=== PATIENT | male | born 1950 | race Caucasian/White ===

== ENCOUNTER 2017-03-26 12:39 | Inpatient (IN) | payer BC, MEDICAID, OTHER ==
[~2017-03-26] VITALS: Ht 170.2 cm; Wt 105.0 kg
[~2017-03-26 12:39] MED LIST: ALBU0.63 NEB; ALBU8.5H5 INH; AMLO5TAB4 PO; CEFD300C37 PO; FLUT1DIS3 INH; HYDR-3342 PO; HYDR25TA6 PO; LOSA50TA2 PO; MONT10TA6 PO; PRED20TA PO
[2017-03-26] MEDS ORDERED: ALBUTEROL/IPRATROPIUM 2.5MG/0.5MG, 3 ML NPPB SCH (13:00)
[2017-03-26] MEDS ORDERED: KETOROLAC 30 MG/1 ML IVPush ONE (13:00)
[2017-03-26] MEDS ORDERED: ALBUTEROL 0.5%, 20ML NPPBCONT ONE ×2 (13:00→16:30)
[2017-03-26] MEDS ORDERED: methylPREDNISolone SOD SUCC 125 MG/2 ML IVP ONE (13:00)
[2017-03-26] MEDS ORDERED: AZITHROMYCIN 500 MG in SODIUM CHLORIDE 0.9% 250 ML IVPB ONE (13:00)
[2017-03-26] MEDS ORDERED: SODIUM CHLORIDE FLUSH 10ML SYR IVF ONE (13:00)
[2017-03-26] MEDS ORDERED: CEFTRIAXONE PMX 1GM/50ML 50 ML IVPB ONE (13:00)
[2017-03-26] MEDS ORDERED: SODIUM CHLORIDE 0.9% 1,000ML IVBOLUS ONE (13:00)
[2017-03-26] MEDS ORDERED: ALBUTEROL/IPRATROPIUM 2.5MG/0.5MG, 3 ML ONE ×2 (13:31→15:49)
[2017-03-26 13:32] LABS: ABG COLLECTION SITE LEFT BRACHIAL
[2017-03-26 13:33] LABS: HEMOGLOBIN 16.6 g/dL (13.7-18.0); WHITE BLOOD COUNT 9.9 x10^3/uL (3.4-10)
[2017-03-26] MEDS ORDERED: CEFTRIAXONE PMX 1GM/50ML 50 ML ONE (13:35)
[2017-03-26] MEDS ORDERED: KETOROLAC 30 MG/1 ML ONE (13:35)
[2017-03-26] MEDS ORDERED: methylPREDNISolone SOD SUCC 125 MG/2 ML ONE (13:36)
[2017-03-26 13:44] LABS: BLOOD UREA NITROGEN 16 mg/dL (7-18)
[2017-03-26 13:49] LABS: ASPARTATE AMINO TRANSFERASE 18 U/L (15-37)
[2017-03-26 13:54] LABS: IS PT STATUS REG ER OR PRE ER? YES
[2017-03-26] MEDS ORDERED: ALBUTEROL 0.5%, 20ML ONE (15:51)
[2017-03-26] MEDS ORDERED: hydrALAzine 20 MG/ML, 1ML IVPush PRN (16:30)
[2017-03-26] MEDS ORDERED: ONDANSETRON 2MG/ML, 2ML IVPush PRN (16:30)
[2017-03-26] MEDS ORDERED: DOCUSATE 100 MG CAPSULE PO PRN (16:30)
[2017-03-26] MEDS ORDERED: POLYETHYLENE GLYCOL 17 GM PACKET PO PRN (16:30)
[2017-03-26] MEDS ORDERED: TEMPLATE NON-FORMULARY MED. (Albuterol Sulfate** (Albuterol Sulfate Hfa**) 2 PUFF(S)) INH PRN (16:30)
[2017-03-26] MEDS ORDERED: GUAIFENESIN/DM 200-20MG, 10ML UDC PO PRN (16:30)
[2017-03-26] MEDS ORDERED: morphine SULFATE 10 MG/ML, 1ML IVPush PRN (16:30)
[2017-03-26] MEDS ORDERED: ZOLPIDEM 5MG TABLET PO PRN (16:30)
[2017-03-26] MEDS ORDERED: BISACODYL 10 MG SUPP PR PRN (16:30)
[2017-03-26] MEDS ORDERED: ONDANSETRON ODT 4 MG PO PRN (16:30)
[2017-03-26 17:05] LABS: IS PT STATUS REG ER OR PRE ER? YES
[2017-03-26 17:52] LABS: RAPID INFLUENZA A Negative (Negative)
[2017-03-26 17:53] LABS: RAPID INFLUENZA B POSITIVE (Negative)
[2017-03-26 18:06] VITALS: BP 187/94
[2017-03-26] MEDS: ENOXAPARIN 40 MG/0.4 ML SQ SCH (18:18)
[2017-03-26] MEDS: NICOTINE 21 MG/24 HR PATCH.TD24 TD SCH (18:19)
[2017-03-26] MEDS: LEVOFLOXACIN/PMX 750MG/150ML 150 ML IV SCH (18:20)
[2017-03-26] MEDS: methylPREDNISolone SOD SUCC 125 MG/2 ML IVPush SCH (18:20)
[2017-03-26] MEDS ORDERED: UMEC1DIS INH (18:48)
[2017-03-26] MEDS ORDERED: TYLENOL MIGRAINE PO (18:48)
[2017-03-26] MEDS: ALBUTEROL/IPRATROPIUM 2.5MG/0.5MG, 3 ML NPPB SCH ×2 (19:27→22:40)
[2017-03-26 19:37] VITALS: BP 114/74
[2017-03-26] MEDS: MONTELUKAST 10 MG TABLET PO SCH (20:38)
[2017-03-26] MEDS: OSELTAMIVIR 75 MG CAPSULE PO SCH (20:38)
[2017-03-26] MEDS ORDERED: OSELTAMIVIR 6 MG/ML ORAL SUSP PO SCH (21:00)
[2017-03-26 22:20] LABS: IS PT STATUS REG ER OR PRE ER? NO
[2017-03-27] MEDS: methylPREDNISolone SOD SUCC 125 MG/2 ML IVPush SCH ×4 (00:13→21:19)
[2017-03-27] MEDS: OXYcodone IR 5MG TABLET PO PRN (00:13)
[2017-03-27] MEDS: GUAIFENESIN/DM 200-20MG, 10ML UDC PO PRN ×3 (00:23→17:17)
[2017-03-27 00:33] VITALS: BP 160/84
[2017-03-27] MEDS: ALBUTEROL/IPRATROPIUM 2.5MG/0.5MG, 3 ML NPPB SCH ×6 (02:40→22:29)
[2017-03-27 05:21] LABS: HEMATOCRIT 46.3 % (39.2-51.8); HEMOGLOBIN 15.8 g/dL (13.7-18.0); WHITE BLOOD COUNT 12.9 x10^3/uL (3.4-10)
[2017-03-27 05:27] LABS: BLOOD UREA NITROGEN 24 mg/dL (7-18)
[2017-03-27 07:57] VITALS: BP 155/75
[2017-03-27] MEDS: OSELTAMIVIR 75 MG CAPSULE PO SCH ×2 (08:51→21:19)
[2017-03-27] MEDS: LOSARTAN 50MG TABLET PO SCH (08:51)
[2017-03-27] MEDS: FLUTICASONE/VILANTEROL 100-25MCG/INH INH SCH (08:51)
[2017-03-27] MEDS: PANTOPROZOLE 40MG TABLET PO SCH (08:51)
[2017-03-27] MEDS: AMLODIPINE 5 MG TABLET PO SCH (08:52)
[2017-03-27 14:16] VITALS: BP 137/73
[2017-03-27] MEDS: NS + 20MEQ KCL 1,000 ML IV SCH (15:27)
[2017-03-27] MEDS: NICOTINE 21 MG/24 HR PATCH.TD24 TD SCH (16:30)
[2017-03-27] MEDS: LEVOFLOXACIN/PMX 750MG/150ML 150 ML IV SCH (16:51)
[2017-03-27] MEDS: ENOXAPARIN 40 MG/0.4 ML SQ SCH (16:51)
[2017-03-27] MEDS: MONTELUKAST 10 MG TABLET PO SCH (19:21)
[2017-03-27 20:08] VITALS: BP 144/77
[2017-03-28] MEDS: ALBUTEROL/IPRATROPIUM 2.5MG/0.5MG, 3 ML NPPB SCH ×6 (02:12→22:30)
[2017-03-28] MEDS: NS + 20MEQ KCL 1,000 ML IV SCH (02:53)
[2017-03-28] MEDS: methylPREDNISolone SOD SUCC 125 MG/2 ML IVPush SCH ×4 (02:53→19:55)
[2017-03-28] MEDS: GUAIFENESIN/DM 200-20MG, 10ML UDC PO PRN ×3 (02:59→16:53)
[2017-03-28 03:00] VITALS: BP 135/71
[2017-03-28 05:57] LABS: BLOOD UREA NITROGEN 31 mg/dL (7-18)
[2017-03-28 06:09] LABS: HEMATOCRIT 44.5 % (39.2-51.8); WHITE BLOOD COUNT 23.9 x10^3/uL (3.4-10)
[2017-03-28 06:59] LABS: DIFF TOTAL CELLS COUNTED 100 CELL DIFF
[2017-03-28 07:00] LABS: VERIFY COUNTS? YES
[2017-03-28 08:30] VITALS: BP 137/66
[2017-03-28] MEDS: AMLODIPINE 5 MG TABLET PO SCH (09:00)
[2017-03-28] MEDS: FLUTICASONE/VILANTEROL 100-25MCG/INH INH SCH (09:23)
[2017-03-28] MEDS: PANTOPROZOLE 40MG TABLET PO SCH (09:24)
[2017-03-28] MEDS: OSELTAMIVIR 75 MG CAPSULE PO SCH ×2 (09:25→21:35)
[2017-03-28 09:35] VITALS: BP 165/100
[2017-03-28] MEDS: LOSARTAN 50MG TABLET PO SCH (09:50)
[2017-03-28 11:25] VITALS: BP 156/73
[2017-03-28 13:54] VITALS: BP 155/76
[2017-03-28] MEDS: ENOXAPARIN 40 MG/0.4 ML SQ SCH (16:49)
[2017-03-28] MEDS: NICOTINE 21 MG/24 HR PATCH.TD24 TD SCH (16:49)
[2017-03-28] MEDS: LEVOFLOXACIN/PMX 750MG/150ML 150 ML IV SCH (16:49)
[2017-03-28 18:36] VITALS: BP 150/73
[2017-03-28] MEDS: MONTELUKAST 10 MG TABLET PO SCH (19:21)
[2017-03-29 01:22] VITALS: BP 138/79
[2017-03-29] MEDS: methylPREDNISolone SOD SUCC 125 MG/2 ML IVPush SCH ×4 (01:24→19:41)
[2017-03-29] MEDS: ALBUTEROL/IPRATROPIUM 2.5MG/0.5MG, 3 ML NPPB SCH ×6 (02:25→23:15)
[2017-03-29 06:16] LABS: BLOOD UREA NITROGEN 35 mg/dL (7-18)
[2017-03-29 07:35] VITALS: BP 167/76
[2017-03-29] MEDS: FLUTICASONE/VILANTEROL 100-25MCG/INH INH SCH (08:28)
[2017-03-29] MEDS: AMLODIPINE 5 MG TABLET PO SCH (08:28)
[2017-03-29] MEDS: PANTOPROZOLE 40MG TABLET PO SCH (08:28)
[2017-03-29] MEDS: LOSARTAN 50MG TABLET PO SCH (08:29)
[2017-03-29] MEDS: GUAIFENESIN/DM 200-20MG, 10ML UDC PO PRN (08:30)
[2017-03-29] MEDS: OSELTAMIVIR 75 MG CAPSULE PO SCH ×2 (09:36→20:58)
[2017-03-29] MEDS: ALBUTEROL SULFATE 2.5 MG/3 ML HHN PRN ×2 (10:49→14:38)
[2017-03-29 14:21] VITALS: BP 133/73
[2017-03-29] MEDS: LEVOFLOXACIN/PMX 750MG/150ML 150 ML IV SCH (16:42)
[2017-03-29] MEDS: ENOXAPARIN 40 MG/0.4 ML SQ SCH (16:43)
[2017-03-29] MEDS: NICOTINE 21 MG/24 HR PATCH.TD24 TD SCH (16:43)
[2017-03-29 19:35] VITALS: BP 135/70
[2017-03-29] MEDS: MONTELUKAST 10 MG TABLET PO SCH (20:48)
[2017-03-30] MEDS: methylPREDNISolone SOD SUCC 125 MG/2 ML IVPush SCH ×4 (00:49→19:37)
[2017-03-30] MEDS: OXYcodone IR 5MG TABLET PO PRN (00:57)
[2017-03-30 02:20] VITALS: BP 129/66
[2017-03-30] MEDS: ALBUTEROL/IPRATROPIUM 2.5MG/0.5MG, 3 ML NPPB SCH ×6 (03:05→22:05)
[2017-03-30 06:34] LABS: BLOOD UREA NITROGEN 33 mg/dL (7-18)
[2017-03-30 09:30] VITALS: BP 146/76
[2017-03-30] MEDS: OSELTAMIVIR 75 MG CAPSULE PO SCH ×2 (09:32→20:39)
[2017-03-30] MEDS: LOSARTAN 50MG TABLET PO SCH (09:33)
[2017-03-30] MEDS: AMLODIPINE 5 MG TABLET PO SCH (09:33)
[2017-03-30] MEDS: PANTOPROZOLE 40MG TABLET PO SCH (09:33)
[2017-03-30] MEDS: FLUTICASONE/VILANTEROL 100-25MCG/INH INH SCH (09:33)
[2017-03-30 13:06] VITALS: BP 150/75
[2017-03-30] MEDS: NICOTINE 21 MG/24 HR PATCH.TD24 TD SCH (16:30)
[2017-03-30] MEDS: ENOXAPARIN 40 MG/0.4 ML SQ SCH (16:51)
[2017-03-30] MEDS: LEVOFLOXACIN/PMX 750MG/150ML 150 ML IV SCH (16:51)
[2017-03-30 19:48] VITALS: BP 150/80
[2017-03-30] MEDS: MONTELUKAST 10 MG TABLET PO SCH (20:39)
[2017-03-31] MEDS: methylPREDNISolone SOD SUCC 125 MG/2 ML IVPush SCH ×4 (01:14→18:31)
[2017-03-31 01:57] VITALS: BP 128/78
[2017-03-31] MEDS: ALBUTEROL/IPRATROPIUM 2.5MG/0.5MG, 3 ML NPPB SCH ×6 (02:13→22:53)
[2017-03-31 06:48] VITALS: BP 163/81
[2017-03-31] MEDS: FLUTICASONE/VILANTEROL 100-25MCG/INH INH SCH (07:41)
[2017-03-31] MEDS: AMLODIPINE 5 MG TABLET PO SCH (07:41)
[2017-03-31] MEDS: LOSARTAN 50MG TABLET PO SCH (07:42)
[2017-03-31] MEDS: PANTOPROZOLE 40MG TABLET PO SCH (07:42)
[2017-03-31] MEDS: OSELTAMIVIR 75 MG CAPSULE PO SCH (07:42)
[2017-03-31 15:46] VITALS: BP 161/77
[2017-03-31] MEDS: ENOXAPARIN 40 MG/0.4 ML SQ SCH (16:33)
[2017-03-31] MEDS: LEVOFLOXACIN/PMX 750MG/150ML 150 ML IV SCH (16:34)
[2017-03-31 19:37] VITALS: BP 150/76
[2017-03-31] MEDS: MONTELUKAST 10 MG TABLET PO SCH (20:19)
[2017-04-01 01:18] VITALS: BP 145/83
[2017-04-01] MEDS: methylPREDNISolone SOD SUCC 125 MG/2 ML IVPush SCH ×4 (01:50→20:52)
[2017-04-01] MEDS: ALBUTEROL/IPRATROPIUM 2.5MG/0.5MG, 3 ML NPPB SCH ×5 (03:00→20:00)
[2017-04-01] MEDS: FLUTICASONE/VILANTEROL 100-25MCG/INH INH SCH (09:13)
[2017-04-01] MEDS: PANTOPROZOLE 40MG TABLET PO SCH (09:14)
[2017-04-01] MEDS: AMLODIPINE 5 MG TABLET PO SCH (09:14)
[2017-04-01] MEDS: LOSARTAN 50MG TABLET PO SCH (09:14)
[2017-04-01] MEDS: GUAIFENESIN/DM 200-20MG, 10ML UDC PO PRN (09:16)
[2017-04-01 09:20] VITALS: BP 168/79
[2017-04-01 16:15] VITALS: BP 169/92
[2017-04-01] MEDS: ENOXAPARIN 40 MG/0.4 ML SQ SCH (17:52)
[2017-04-01] MEDS: LEVOFLOXACIN 750 MG TABLET PO SCH (17:53)
[2017-04-01 18:50] VITALS: BP 146/74
[2017-04-01] MEDS: MONTELUKAST 10 MG TABLET PO SCH (20:52)
[2017-04-02] MEDS: methylPREDNISolone SOD SUCC 125 MG/2 ML IVPush SCH ×4 (02:54→21:16)
[2017-04-02 02:59] VITALS: BP 134/71
[2017-04-02 07:43] VITALS: BP 155/87
[2017-04-02] MEDS: ALBUTEROL/IPRATROPIUM 2.5MG/0.5MG, 3 ML NPPB SCH ×4 (07:45→19:15)
[2017-04-02] MEDS: FLUTICASONE/VILANTEROL 100-25MCG/INH INH SCH (08:56)
[2017-04-02] MEDS: PANTOPROZOLE 40MG TABLET PO SCH (08:56)
[2017-04-02] MEDS: AMLODIPINE 5 MG TABLET PO SCH (08:57)
[2017-04-02] MEDS: LOSARTAN 50MG TABLET PO SCH (08:57)
[2017-04-02] MEDS ORDERED: FLU VACC QS2017-18 (36MOS+) UP/PF 0.5 ML IM-VACC ONE (10:30)
[2017-04-02 13:29] VITALS: BP 140/72
[2017-04-02] MEDS: ENOXAPARIN 40 MG/0.4 ML SQ SCH (16:28)
[2017-04-02] MEDS: LEVOFLOXACIN 750 MG TABLET PO SCH (16:28)
[2017-04-02 18:55] VITALS: BP 152/75
[2017-04-02] MEDS: MONTELUKAST 10 MG TABLET PO SCH (21:16)
[2017-04-03 00:30] VITALS: BP 133/68
[2017-04-03] MEDS: methylPREDNISolone SOD SUCC 125 MG/2 ML IVPush SCH ×2 (02:51→08:53)
[2017-04-03 06:23] LABS: HEMATOCRIT 43.7 % (39.2-51.8); HEMOGLOBIN 14.7 g/dL (13.7-18.0); WHITE BLOOD COUNT 13.6 x10^3/uL (3.4-10)
[2017-04-03 06:28] LABS: BLOOD UREA NITROGEN 25 mg/dL (7-18)
[2017-04-03] MEDS: ALBUTEROL/IPRATROPIUM 2.5MG/0.5MG, 3 ML NPPB SCH (07:20)
[2017-04-03 08:00] VITALS: BP 150/70
[2017-04-03] MEDS: FLUTICASONE/VILANTEROL 100-25MCG/INH INH SCH (08:52)
[2017-04-03] MEDS: AMLODIPINE 5 MG TABLET PO SCH (08:53)
[2017-04-03] MEDS: LOSARTAN 50MG TABLET PO SCH (08:53)
[2017-04-03] MEDS: PANTOPROZOLE 40MG TABLET PO SCH (08:53)
[2017-04-03] MEDS ORDERED: PRED20TA PO (09:09)
[2017-04-03] MEDS ORDERED: MONT10TA9 PO (09:09)
[2017-04-03] MEDS ORDERED: LEVO750T26 PO (09:09)
[2017-04-03] MEDS ORDERED: HYDR-3342 PO (09:09)
[2017-04-03] MEDS ORDERED: AMLO5TAB2 PO (09:09)
[2017-04-03] MEDS ORDERED: DOXY100T PO (09:18)
== END 2017-04-03 10:40 | disposition home or self-care (01) | DRG 189 ==
LOC: ED 15:06 → EDIP 16:14 → 5SO 17:25 → 3NE 04-02 00:01
PROVIDERS: ADMIT Internal Medicine; ATTEND Hospitalist
DX: J96.01 Acute respiratory failure with hypoxia (principal); N17.0 Acute kidney failure with tubular necrosis; J10.08 Influenza due to other identified influenza virus with other specified pneumonia; J44.0 Chronic obstructive pulmonary disease with (acute) lower respiratory infection; J44.1 Chronic obstructive pulmonary disease with (acute) exacerbation; F17.200 Nicotine dependence, unspecified, uncomplicated; I10 Essential (primary) hypertension; J20.9 Acute bronchitis, unspecified; E66.9 Obesity, unspecified; J10.1 Influenza due to other identified influenza virus with other respiratory manifestations; E78.5 Hyperlipidemia, unspecified; Z68.36 Body mass index [BMI] 36.0-36.9, adult
CPT/HCPCS: 36415; 36600; 71010; 80048; 80053; 80061; 82040; 82803; 83036; 83605; 83690; 83735; 83880; 84100; 84439; 84443; 84484; 85025; 85610; 85730; 87040; 87400; 90686; 93005; 94640; 94644; 96365; 96366; 96367; 96375; J0456; J0696; J1650; J1885; J1956; J3480; J7613; J7620; J2930; J7030; J7050

== ENCOUNTER 2018-03-01 21:34 | Inpatient (IN) | payer OTHER, MEDICARE ==
[~2018-03-01] VITALS: Ht 170.2 cm; Wt 105.3 kg
[~2018-03-01 21:34] MED LIST changes: +AMLO5TAB7 PO; +DOXY100T PO; +LEVO750T26 PO; +MONT10TA9 PO; +TYLENOL MIGRAINE PO; +UMEC1DIS INH
[2018-03-01] MEDS ORDERED: ALBUTEROL/IPRATROPIUM 2.5MG/0.5MG, 3 ML ONE (22:09)
[2018-03-01] MEDS ORDERED: ALBUTEROL/IPRATROPIUM 2.5MG/0.5MG, 3 ML NPPB SCH (22:30)
[2018-03-01 22:51] LABS: BASOPHILS # (AUTO) 0.06 x10^3/uL (0-0.1); BASOPHILS % (AUTO) 1 % (0-1); EOSINOPHILS # (AUTO) 0.22 x10^3/uL (0-0.4); EOSINOPHILS % (AUTO) 2 % (1-7); LYMPHOCYTES % (AUTO) 9 % (22-44); MD NO; MEAN CORPUSCULAR HEMOGLOBIN 29.7 pg (27.5-34.5); MEAN CORPUSCULAR HGB CONC 33.8 g/dL (33.2-36.2); MEAN CORPUSCULAR VOLUME 87.9 fL (81-97); MEAN PLATELET VOLUME 7.8 fL (7.4-10.4); MONOCYTES # (AUTO) 1.18 x10^3/uL (0.2-0.8); MONOCYTES % (AUTO) 10 % (2-9); NEUTROPHILS # (AUTO) 9.43 x10^3/uL (1.8-6.8); NEUTROPHILS % (AUTO) 79 % (42-75); PLATELET COUNT 319 x10^3/uL (130-400); RED BLOOD COUNT 5.12 x10^6/uL (4.38-5.82); RED CELL DISTRIBUTION WIDTH 14.2 % (9.4-14.8)
[2018-03-01 23:01] LABS: ALANINE AMINOTRANSFERASE 31 U/L (12-78); ALBUMIN 3.8 g/dL (3.4-5.0); ANION GAP 9 mmol/L (5-15); CALCIUM 8.6 mg/dL (8.5-10.1); CHLORIDE 106 mmol/L (98-107)
[2018-03-01 23:05] LABS: ALKALINE PHOSPHATASE 89 U/L (45-117); BILIRUBIN,TOTAL 0.6 mg/dL (0.2-1.0); TOTAL PROTEIN 7.8 g/dL (6.4-8.2); TROPONIN I < 0.015 ng/mL (0.000-0.045)
[2018-03-02] VITALS (7 sets, daily range): BP systolic 113–156; BP diastolic 60–88
[2018-03-02] MEDS ORDERED: HYDROcodone/APAP 5/325 TABLET PO PRN
[2018-03-02] MEDS ORDERED: morphine SULFATE 10 MG/ML, 1ML IVPush PRN
[2018-03-02] MEDS ORDERED: DOCUSATE 100 MG CAPSULE PO PRN
[2018-03-02] MEDS ORDERED: ENALAPRILAT 1.25 MG/ML, 2ML IV PRN
[2018-03-02] MEDS ORDERED: POLYETHYLENE GLYCOL 17 GM PACKET PO PRN
[2018-03-02] MEDS ORDERED: ACETAMINOPHEN 325 MG TABLET PO PRN
[2018-03-02] MEDS ORDERED: ONDANSETRON 2MG/ML, 2ML IVPush PRN
[2018-03-02] MEDS ORDERED: hydrALAzine 20 MG/ML, 1ML IV PRN
[2018-03-02] MEDS ORDERED: AZITHROMYCIN 500 MG in SODIUM CHLORIDE 0.9% 250 ML IV SCH (01:00)
[2018-03-02] MEDS ORDERED: NS + 20MEQ KCL 1,000 ML IV SCH (01:00)
[2018-03-02] MEDS ORDERED: CEFTRIAXONE PMX 1GM/50ML 50 ML IV SCH (01:00)
[2018-03-02] MEDS: methylPREDNISolone SOD SUCC 125 MG/2 ML IVPush SCH ×3 (01:29→17:16)
[2018-03-02] MEDS: ENOXAPARIN 40 MG/0.4 ML SQ SCH (01:29)
[2018-03-02] MEDS ORDERED: ALBUTEROL/IPRATROPIUM 2.5MG/0.5MG, 3 ML NPPB PRN (01:30)
[2018-03-02] MEDS: GUAIFENESIN/COD200MG-20MG/10ML LIQUID PO PRN ×3 (01:30→19:46)
[2018-03-02 05:30] LABS: CHLORIDE 107 mmol/L (98-107)
[2018-03-02 05:34] LABS: ANION GAP 8 mmol/L (5-15); CALCIUM 8.7 mg/dL (8.5-10.1)
[2018-03-02] MEDS: ALBUTEROL/IPRATROPIUM 2.5MG/0.5MG, 3 ML NPPB SCH ×5 (05:38→22:00)
[2018-03-02] MEDS: LORazepam 1MG TABLET PO PRN ×2 (05:42→11:25)
[2018-03-02] MEDS: TEMPLATE NON-FORMULARY MED. (Umeclidinium Brm/Vilanterol Tr (Anoro Ellipta 62.5-25 Mcg Inh INH SCH (09:00)
[2018-03-02] MEDS: SENNA/DOCUSATE TABLET PO SCH (09:00)
[2018-03-02] MEDS: LOSARTAN 50MG TABLET PO SCH (09:16)
[2018-03-02] MEDS: AMLODIPINE 10 MG TAB PO SCH (09:16)
[2018-03-02] MEDS: MONTELUKAST 10 MG TABLET PO SCH (19:46)
[2018-03-03] MEDS: methylPREDNISolone SOD SUCC 125 MG/2 ML IVPush SCH ×4 (01:37→22:06)
[2018-03-03] MEDS: ENOXAPARIN 40 MG/0.4 ML SQ SCH (01:37)
[2018-03-03] MEDS: GUAIFENESIN/COD200MG-20MG/10ML LIQUID PO PRN ×4 (01:37→22:06)
[2018-03-03 06:41] VITALS: BP 134/70
[2018-03-03] MEDS: ALBUTEROL/IPRATROPIUM 2.5MG/0.5MG, 3 ML NPPB SCH ×5 (07:10→22:00)
[2018-03-03] MEDS: AMLODIPINE 10 MG TAB PO SCH ×2 (08:28→09:00)
[2018-03-03] MEDS: LOSARTAN 50MG TABLET PO SCH (08:29)
[2018-03-03] MEDS: SENNA/DOCUSATE TABLET PO SCH (08:30)
[2018-03-03 08:31] VITALS: BP 105/58
[2018-03-03] MEDS: TEMPLATE NON-FORMULARY MED. (Umeclidinium Brm/Vilanterol Tr (Anoro Ellipta 62.5-25 Mcg Inh INH SCH (09:00)
[2018-03-03 13:43] VITALS: BP 135/66
[2018-03-03 18:50] VITALS: BP 131/60
[2018-03-03] MEDS: MONTELUKAST 10 MG TABLET PO SCH (22:06)
[2018-03-04 00:53] VITALS: BP 118/63
[2018-03-04] MEDS: GUAIFENESIN/COD200MG-20MG/10ML LIQUID PO PRN ×3 (03:49→18:01)
[2018-03-04] MEDS: ENOXAPARIN 40 MG/0.4 ML SQ SCH (03:49)
[2018-03-04] MEDS: methylPREDNISolone SOD SUCC 125 MG/2 ML IVPush SCH ×3 (03:49→20:10)
[2018-03-04 06:44] VITALS: BP 158/79
[2018-03-04] MEDS: ALBUTEROL/IPRATROPIUM 2.5MG/0.5MG, 3 ML NPPB SCH ×5 (07:18→22:00)
[2018-03-04] MEDS: SENNA/DOCUSATE TABLET PO SCH (09:12)
[2018-03-04] MEDS: AMLODIPINE 10 MG TAB PO SCH (09:12)
[2018-03-04] MEDS: LOSARTAN 50MG TABLET PO SCH (09:12)
[2018-03-04] MEDS: TEMPLATE NON-FORMULARY MED. (Umeclidinium Brm/Vilanterol Tr (Anoro Ellipta 62.5-25 Mcg Inh INH SCH (09:14)
[2018-03-04 12:20] VITALS: BP 127/61
[2018-03-04] MEDS: POLYETHYLENE GLYCOL 17 GM PACKET PO SCH (17:07)
[2018-03-04] MEDS: MONTELUKAST 10 MG TABLET PO SCH (20:10)
[2018-03-04] MEDS: LORazepam 1MG TABLET PO PRN (20:10)
[2018-03-04 20:43] VITALS: BP 144/77
[2018-03-05] MEDS: GUAIFENESIN/COD200MG-20MG/10ML LIQUID PO PRN ×4 (00:51→22:06)
[2018-03-05] MEDS: ENOXAPARIN 40 MG/0.4 ML SQ SCH (00:51)
[2018-03-05 01:04] VITALS: BP 141/69
[2018-03-05] MEDS: LORazepam 1MG TABLET PO PRN ×2 (02:53→21:01)
[2018-03-05] MEDS: methylPREDNISolone SOD SUCC 125 MG/2 ML IVPush SCH ×3 (03:26→21:00)
[2018-03-05 04:36] LABS: BASOPHILS % (AUTO) 0 % (0-1); EOSINOPHILS # (AUTO) 0.12 x10^3/uL (0-0.4); EOSINOPHILS % (AUTO) 1 % (1-7); LYMPHOCYTES # (AUTO) 0.69 x10^3/uL (1-3.4); LYMPHOCYTES % (AUTO) 5 % (22-44); MD NO; MEAN CORPUSCULAR HEMOGLOBIN 29.4 pg (27.5-34.5); MEAN CORPUSCULAR VOLUME 89.3 fL (81-97); MEAN PLATELET VOLUME 7.8 fL (7.4-10.4); MONOCYTES # (AUTO) 0.92 x10^3/uL (0.2-0.8); MONOCYTES % (AUTO) 6 % (2-9); NEUTROPHILS # (AUTO) 13.29 x10^3/uL (1.8-6.8); NEUTROPHILS % (AUTO) 89 % (42-75); PLATELET COUNT 306 x10^3/uL (130-400); RED BLOOD COUNT 4.56 x10^6/uL (4.38-5.82); RED CELL DISTRIBUTION WIDTH 15.3 % (9.4-14.8)
[2018-03-05 04:51] LABS: CHLORIDE 108 mmol/L (98-107)
[2018-03-05 04:55] LABS: ANION GAP 9 mmol/L (5-15); CALCIUM 8.7 mg/dL (8.5-10.1); CREATININE 1.09 mg/dL (0.7-1.3)
[2018-03-05 07:07] VITALS: BP 149/86
[2018-03-05] MEDS: ALBUTEROL/IPRATROPIUM 2.5MG/0.5MG, 3 ML NPPB SCH ×6 (09:00→23:25)
[2018-03-05] MEDS: TEMPLATE NON-FORMULARY MED. (Umeclidinium Brm/Vilanterol Tr (Anoro Ellipta 62.5-25 Mcg Inh INH SCH (09:00)
[2018-03-05] MEDS ORDERED: MAGNESIUM HYDROXIDE 8%, 30ML UDC PO ONE (09:30)
[2018-03-05] MEDS: AZITHROMYCIN 500 MG in SODIUM CHLORIDE 0.9% 250 ML IV SCH (10:42)
[2018-03-05] MEDS: SENNA/DOCUSATE TABLET PO SCH (10:42)
[2018-03-05] MEDS: LOSARTAN 50MG TABLET PO SCH (10:42)
[2018-03-05] MEDS: FLUTICASONE/VILANTEROL 100-25MCG/INH INH SCH (10:42)
[2018-03-05] MEDS: AMLODIPINE 10 MG TAB PO SCH (10:42)
[2018-03-05] MEDS: POLYETHYLENE GLYCOL 17 GM PACKET PO SCH (10:42)
[2018-03-05] MEDS: DOCUSATE 100 MG CAPSULE PO SCH ×2 (10:43→21:00)
[2018-03-05 12:15] VITALS: BP 135/65
[2018-03-05] MEDS ORDERED: LORazepam 0.5MG TABLET ONE (20:52)
[2018-03-05] MEDS: MONTELUKAST 10 MG TABLET PO SCH (21:01)
[2018-03-05 21:27] VITALS: BP 126/65
[2018-03-06 02:31] VITALS: BP 129/63
[2018-03-06] MEDS: methylPREDNISolone SOD SUCC 125 MG/2 ML IVPush SCH ×2 (04:19→12:37)
[2018-03-06] MEDS: ENOXAPARIN 40 MG/0.4 ML SQ SCH (04:19)
[2018-03-06] MEDS: GUAIFENESIN/COD200MG-20MG/10ML LIQUID PO PRN (04:19)
[2018-03-06 06:35] VITALS: BP 147/81
[2018-03-06] MEDS: ALBUTEROL/IPRATROPIUM 2.5MG/0.5MG, 3 ML NPPB SCH ×2 (06:45→10:21)
[2018-03-06] MEDS: FLUTICASONE/VILANTEROL 100-25MCG/INH INH SCH (09:08)
[2018-03-06] MEDS: AMLODIPINE 10 MG TAB PO SCH (09:09)
[2018-03-06] MEDS: TEMPLATE NON-FORMULARY MED. (Umeclidinium Brm/Vilanterol Tr (Anoro Ellipta 62.5-25 Mcg Inh INH SCH (09:09)
[2018-03-06] MEDS: DOCUSATE 100 MG CAPSULE PO SCH (09:09)
[2018-03-06] MEDS: LOSARTAN 50MG TABLET PO SCH (09:09)
[2018-03-06] MEDS: SENNA/DOCUSATE TABLET PO SCH (09:10)
[2018-03-06] MEDS: POLYETHYLENE GLYCOL 17 GM PACKET PO SCH (09:10)
[2018-03-06] MEDS ORDERED: DOCU-131 PO (11:02)
[2018-03-06] MEDS ORDERED: AZIT250T PO (11:02)
[2018-03-06] MEDS ORDERED: POLY17PO5 PO (11:02)
[2018-03-06] MEDS ORDERED: MONT10TA9 PO (11:02)
[2018-03-06] MEDS ORDERED: LOSA50TA2 PO (11:02)
[2018-03-06] MEDS ORDERED: AMLO10TA6 PO (11:02)
[2018-03-06] MEDS ORDERED: METH4TAB2 PO (11:03)
[2018-03-06] MEDS ORDERED: PANT40TA3 PO (11:04)
[2018-03-06] MEDS: AZITHROMYCIN 500 MG in SODIUM CHLORIDE 0.9% 250 ML IV SCH (12:36)
[2018-03-06 12:48] VITALS: BP 137/71
== END 2018-03-06 14:44 | disposition home or self-care (01) | DRG 189 ==
LOC: ED 23:00 → EDIP 23:36 → SUATTDRO 23:40 → 3NE 03-02 00:30
PROVIDERS: ADMIT Family Medicine; ATTEND Family Medicine
DX: J96.21 Acute and chronic respiratory failure with hypoxia (principal); J44.1 Chronic obstructive pulmonary disease with (acute) exacerbation; K59.00 Constipation, unspecified; D72.829 Elevated white blood cell count, unspecified; E66.9 Obesity, unspecified; I10 Essential (primary) hypertension; E78.5 Hyperlipidemia, unspecified; E87.6 Hypokalemia; I35.8 Other nonrheumatic aortic valve disorders; Z80.51 Family history of malignant neoplasm of kidney; Z87.891 Personal history of nicotine dependence; Z82.5 Family history of asthma and other chronic lower respiratory diseases; Z99.81 Dependence on supplemental oxygen; Z79.899 Other long term (current) drug therapy; Z68.36 Body mass index [BMI] 36.0-36.9, adult
CPT/HCPCS: 36415; 84145; 99285; J7620; 71045; 71046; 80048; 80053; 83735; 83880; 84484; 85025; 85379; 93005; 93306; 94640; G0378; J0456; J0696; J1650; J3480; J2930; J7050; J7512

== ENCOUNTER 2018-12-15 18:59 | Inpatient (IN) | payer OTHER, MEDICARE ==
[~2018-12-15] VITALS: Ht 170.2 cm; Wt 108.0 kg
[~2018-12-15 18:59] MED LIST changes: +AMLO-150 PO; +AMLO10TA8 PO; -AMLO5TAB7 PO; +AZIT250T PO; +DOCU-131 PO; +METH4TAB2 PO; +PANT40TA3 PO; +POLY17PO5 PO
[2018-12-15] MEDS ORDERED: methylPREDNISolone SOD SUCC 125 MG/2 ML ONE (19:16)
[2018-12-15] MEDS ORDERED: ALBUTEROL/IPRATROPIUM 2.5MG/0.5MG, 3 ML ONE ×2 (19:16→21:45)
--- NOTE | 2018-12-15 19:20 | NUR ---
Report received and care assumed. Pt on Bipap and tolerating well. Resp therapist at bedside. Pt with 1 episode of vomiting after Solumedrol--states nausea resolved. PT states feels better with bipap in place.
[2018-12-15] MEDS ORDERED: ONDANSETRON 2MG/ML, 2ML ONE (19:22)
[2018-12-15] MEDS ORDERED: methylPREDNISolone SOD SUCC 125 MG/2 ML IVP ONE (19:30)
[2018-12-15] MEDS ORDERED: ALBUTEROL/IPRATROPIUM 2.5MG/0.5MG, 3 ML NEB ONE (19:30)
[2018-12-15 19:34] LABS: ALANINE AMINOTRANSFERASE 42 U/L (12-78); ALBUMIN 3.9 g/dL (3.4-5.0); ANION GAP 7 mmol/L (5-15); CALCIUM 9.1 mg/dL (8.5-10.1); CHLORIDE 106 mmol/L (98-107); CREATININE 1.35 mg/dL (0.7-1.3)
[2018-12-15 19:39] LABS: ALKALINE PHOSPHATASE 107 U/L (45-117); BILIRUBIN,TOTAL 0.3 mg/dL (0.2-1.0); TOTAL PROTEIN 7.9 g/dL (6.4-8.2); TROPONIN I < 0.015 ng/mL (0.000-0.045)
[2018-12-15] MEDS: ALBUTEROL SULFATE 2.5 MG/3 ML NPPB SCH ×3 (19:40→20:14)
--- NOTE | 2018-12-15 19:47 | NUR ---
Pt not tolerating BiPap mask. Resp therapist at bedside to change mask. Continues with rapid resp.
[2018-12-15] MEDS ORDERED: LOSA1TAB12 PO (20:02)
[2018-12-15] MEDS ORDERED: ALBU8.5H8 INH (20:02)
[2018-12-15] MEDS ORDERED: BECL10.62 INH (20:02)
[2018-12-15] MEDS ORDERED: UMEC1DIS INH (20:02)
[2018-12-15 20:07] LABS: BASOPHILS # (AUTO) 0.06 x10^3/uL (0-0.1); BASOPHILS % (AUTO) 1 % (0-1); EOSINOPHILS # (AUTO) 0.26 x10^3/uL (0-0.4); EOSINOPHILS % (AUTO) 2 % (1-7); LYMPHOCYTES # (AUTO) 1.64 x10^3/uL (1-3.4); LYMPHOCYTES % (AUTO) 14 % (22-44); MD NO; MEAN CORPUSCULAR HEMOGLOBIN 30.7 pg (27.5-34.5); MEAN CORPUSCULAR HGB CONC 33.1 g/dL (33.2-36.2); MEAN CORPUSCULAR VOLUME 92.7 fL (81-97); MEAN PLATELET VOLUME 8.2 fL (7.4-10.4); MONOCYTES # (AUTO) 1.18 x10^3/uL (0.2-0.8); MONOCYTES % (AUTO) 10 % (2-9); NEUTROPHILS # (AUTO) 8.63 x10^3/uL (1.8-6.8); NEUTROPHILS % (AUTO) 73 % (42-75); PLATELET COUNT 324 x10^3/uL (130-400); RED BLOOD COUNT 5.13 x10^6/uL (4.38-5.82); RED CELL DISTRIBUTION WIDTH 13.2 % (9.4-14.8)
--- NOTE | 2018-12-15 20:15 | NUR ---
PT TOLERATING BIPAP WITH NEW MASK. STATES FEELS BREATHING IS BETTER. RESP REMAIN RAPID. OTHERWISE VSS. DENIES NEEDS. CALL LIGHT IN REACH. ERP IN TO RECHECK. PT TO BE ADMITTED.
--- NOTE | 2018-12-15 20:42 | NUR ---
Dr Lepe at bedside for admission. Pt continues to tolerate BiPap well. Resp adjusted setting s/t ABGs.
--- NOTE | 2018-12-15 20:47 | NUR ---
PT'S , KEITH, TO BE CONTACTED @ [phone]
--- NOTE | 2018-12-15 21:25 | NUR ---
CALLED TO CLARIFY ANTIBIOTIC ORDER WITH DR CARTWRIGHT. BLOOD CULTURES X2 TO BE DRAWN PRIOR TO STARTING MEDS. ORDER PLACED.
[2018-12-15] MEDS ORDERED: DOXYCYCLINE 100 MG in DEXTROSE 5% 250 ML IVPB SCH (21:30)
[2018-12-15] MEDS ORDERED: ALBUTEROL SULFATE 2.5 MG/3 ML ONE (21:47)
[2018-12-15] MEDS: BUDESONIDE 0.5 MG/2 ML INHA NPPB SCH (21:48)
[2018-12-15] MEDS ORDERED: ALBUTEROL SULFATE 2.5 MG/3 ML NPPB SCH (22:00)
[2018-12-15] MEDS ORDERED: ALBUTEROL/IPRATROPIUM 2.5MG/0.5MG, 3 ML NPPB SCH (23:00)
[2018-12-16] MEDS: methylPREDNISolone SOD SUCC 40 MG/ML IVPush SCH ×4 (00:15→16:55)
[2018-12-16] MEDS: HEPARIN 5,000 UNITS/ML, 1ML SQ SCH ×3 (00:15→16:55)
[2018-12-16 00:47] VITALS: BP 150/78
[2018-12-16] MEDS: ALBUTEROL/IPRATROPIUM 2.5MG/0.5MG, 3 ML NPPB SCH ×7 (01:08→22:26)
[2018-12-16 04:50] LABS: ALBUMIN 3.6 g/dL (3.4-5.0); ANION GAP 9 mmol/L (5-15); CALCIUM 8.9 mg/dL (8.5-10.1); CHLORIDE 107 mmol/L (98-107)
[2018-12-16 04:57] LABS: BASOPHILS # (AUTO) 0.02 x10^3/uL (0-0.1); BASOPHILS % (AUTO) 0 % (0-1); EOSINOPHILS # (AUTO) 0.01 x10^3/uL (0-0.4); EOSINOPHILS % (AUTO) 0 % (1-7); LYMPHOCYTES # (AUTO) 0.42 x10^3/uL (1-3.4); LYMPHOCYTES % (AUTO) 5 % (22-44); MD NO; MEAN CORPUSCULAR HEMOGLOBIN 30.4 pg (27.5-34.5); MEAN CORPUSCULAR HGB CONC 32.9 g/dL (33.2-36.2); MEAN CORPUSCULAR VOLUME 92.5 fL (81-97); MEAN PLATELET VOLUME 7.9 fL (7.4-10.4); MONOCYTES # (AUTO) 0.13 x10^3/uL (0.2-0.8); MONOCYTES % (AUTO) 1 % (2-9); NEUTROPHILS # (AUTO) 8.75 x10^3/uL (1.8-6.8); NEUTROPHILS % (AUTO) 94 % (42-75); PLATELET COUNT 283 x10^3/uL (130-400); RED BLOOD COUNT 4.91 x10^6/uL (4.38-5.82); RED CELL DISTRIBUTION WIDTH 13.4 % (9.4-14.8)
[2018-12-16 04:58] LABS: ALANINE AMINOTRANSFERASE 35 U/L (12-78); ALKALINE PHOSPHATASE 91 U/L (45-117); BILIRUBIN,TOTAL 0.4 mg/dL (0.2-1.0); CREATININE 1.21 mg/dL (0.7-1.3); TOTAL PROTEIN 7.4 g/dL (6.4-8.2)
[2018-12-16] MEDS: BUDESONIDE 0.5 MG/2 ML INHA NPPB SCH ×2 (07:56→19:05)
[2018-12-16] MEDS ORDERED: BECLOMETHASONE DIPROPIONATE INH SCH (09:00)
[2018-12-16] MEDS: LOSARTAN 50MG TABLET PO SCH (09:00)
[2018-12-16] MEDS: HYDROCHLOROTHIAZIDE 25 MG TABLET PO SCH (09:00)
[2018-12-16] MEDS: SODIUM CHLORIDE FLUSH 10ML SYR IVF SCH ×2 (09:00→21:13)
[2018-12-16] MEDS ORDERED: FLUTICASONE/VILANTEROL 200-25MCG/INH INH SCH (09:00)
[2018-12-16] MEDS: MONTELUKAST 10 MG TABLET PO SCH (09:00)
[2018-12-16] MEDS: DOXYCYCLINE 100MG TABLET PO SCH ×2 (10:02→21:13)
[2018-12-16] MEDS ORDERED: MAGNESIUM SULFATE PMX 2GM/50ML 50 ML IV ONE (11:00)
[2018-12-16] MEDS ORDERED: ONDANSETRON 2MG/ML, 2ML ONE (13:43)
[2018-12-16] MEDS ORDERED: ONDANSETRON 2MG/ML, 2ML IVPush PRN (14:00)
[2018-12-16] MEDS: METOPROLOL TARTRATE 25 MG TABLET PO SCH (16:55)
[2018-12-16] MEDS ORDERED: METHYLNALTREXONE 12 MG/0.6 ML SYR SQ SCH (17:00)
[2018-12-16] MEDS ORDERED: METOCLOPRAMIDE 5 MG/ML, 2ML IVPush PRN (17:00)
[2018-12-16] MEDS ORDERED: BISACODYL 10 MG SUPP ONE (17:31)
[2018-12-16] MEDS: BISACODYL 10 MG SUPP PR SCH (17:37)
[2018-12-17] MEDS: HEPARIN 5,000 UNITS/ML, 1ML SQ SCH ×4 (00:20→23:54)
[2018-12-17] MEDS: methylPREDNISolone SOD SUCC 40 MG/ML IVPush SCH ×4 (00:20→22:34)
[2018-12-17] MEDS: ALBUTEROL/IPRATROPIUM 2.5MG/0.5MG, 3 ML NPPB SCH ×6 (03:00→22:44)
[2018-12-17] MEDS: METOPROLOL TARTRATE 25 MG TABLET PO SCH ×2 (06:14→17:59)
[2018-12-17] MEDS: BUDESONIDE 0.5 MG/2 ML INHA NPPB SCH ×2 (07:30→18:46)
[2018-12-17] MEDS: SODIUM CHLORIDE FLUSH 10ML SYR IVF SCH ×2 (08:09→20:46)
[2018-12-17] MEDS: HYDROCHLOROTHIAZIDE 25 MG TABLET PO SCH (08:10)
[2018-12-17] MEDS: DOXYCYCLINE 100MG TABLET PO SCH ×2 (08:10→20:46)
[2018-12-17] MEDS: LOSARTAN 50MG TABLET PO SCH (08:10)
[2018-12-17] MEDS: MONTELUKAST 10 MG TABLET PO SCH (08:10)
[2018-12-17 10:36] VITALS: BP 125/71
[2018-12-17 14:53] VITALS: BP 116/63
[2018-12-17 17:57] VITALS: BP 134/69
[2018-12-17 19:47] VITALS: BP 120/64
[2018-12-18 01:58] VITALS: BP 148/69
[2018-12-18] MEDS: ALBUTEROL/IPRATROPIUM 2.5MG/0.5MG, 3 ML NPPB SCH ×6 (02:43→22:20)
[2018-12-18 05:23] VITALS: BP 133/66
[2018-12-18] MEDS: METOPROLOL TARTRATE 25 MG TABLET PO SCH (05:24)
[2018-12-18] MEDS: methylPREDNISolone SOD SUCC 40 MG/ML IVPush SCH ×3 (05:24→21:59)
[2018-12-18 05:33] LABS: MEAN CORPUSCULAR HEMOGLOBIN 30.3 pg (27.5-34.5); MEAN CORPUSCULAR HGB CONC 32.8 g/dL (33.2-36.2); MEAN CORPUSCULAR VOLUME 92.6 fL (81-97); MEAN PLATELET VOLUME 8.1 fL (7.4-10.4); PLATELET COUNT 282 x10^3/uL (130-400); RED BLOOD COUNT 4.68 x10^6/uL (4.38-5.82)
[2018-12-18 05:46] LABS: ALBUMIN 3.3 g/dL (3.4-5.0); CHLORIDE 103 mmol/L (98-107)
[2018-12-18 05:49] LABS: BASOPHILS % (AUTO) 0 % (0-1); EOSINOPHILS % (AUTO) 0 % (1-7); LYMPHOCYTES # (AUTO) 0.64 x10^3/uL (1-3.4); LYMPHOCYTES % (AUTO) 4 % (22-44); MD SCAN; MONOCYTES # (AUTO) 1.07 x10^3/uL (0.2-0.8); MONOCYTES % (AUTO) 7 % (2-9); NEUTROPHILS % (AUTO) 89 % (42-75)
[2018-12-18 05:51] LABS: ALANINE AMINOTRANSFERASE 37 U/L (12-78); ALKALINE PHOSPHATASE 77 U/L (45-117); ANION GAP 7 mmol/L (5-15); BILIRUBIN,TOTAL 0.4 mg/dL (0.2-1.0); CALCIUM 8.9 mg/dL (8.5-10.1); TOTAL PROTEIN 6.7 g/dL (6.4-8.2)
[2018-12-18] MEDS: BUDESONIDE 0.5 MG/2 ML INHA NPPB SCH ×2 (07:00→18:35)
[2018-12-18 07:11] VITALS: BP 147/77
[2018-12-18] MEDS: LOSARTAN 50MG TABLET PO SCH (08:11)
[2018-12-18] MEDS: DOXYCYCLINE 100MG TABLET PO SCH ×2 (08:12→20:42)
[2018-12-18] MEDS: BISACODYL 10 MG SUPP PR SCH (08:12)
[2018-12-18] MEDS: MONTELUKAST 10 MG TABLET PO SCH (08:12)
[2018-12-18] MEDS: HYDROCHLOROTHIAZIDE 25 MG TABLET PO SCH (08:12)
[2018-12-18] MEDS ORDERED: BISACODYL 10 MG SUPP PR PRN (08:30)
[2018-12-18] MEDS ORDERED: POLYETHYLENE GLYCOL 17 GM PACKET PO PRN (08:30)
[2018-12-18] MEDS ORDERED: POTASSIUM CHLORIDE 10 MEQ TABLET.ER PO ONE (08:30)
[2018-12-18] MEDS ORDERED: FUROSEMIDE 20 MG/2 ML IV ONE (08:30)
[2018-12-18] MEDS ORDERED: MAGNESIUM HYDROXIDE 8%, 30ML UDC PO PRN (08:30)
[2018-12-18] MEDS: SENNA/DOCUSATE TABLET PO SCH ×2 (08:31→20:42)
[2018-12-18] MEDS: ENOXAPARIN 40 MG/0.4 ML SQ SCH (08:32)
[2018-12-18] MEDS: SODIUM CHLORIDE FLUSH 10ML SYR IVF SCH ×2 (08:33→20:42)
[2018-12-18] MEDS: GUAIFENESIN/DM 100-10MG, 5ML UDC PO PRN (08:34)
[2018-12-18] MEDS: GUAIFENESIN 200 MG TABLET PO SCH ×3 (11:13→20:42)
[2018-12-18 14:00] VITALS: BP 105/56
[2018-12-18 18:51] VITALS: BP 134/75
[2018-12-19 01:49] VITALS: BP 142/74
[2018-12-19] MEDS: ALBUTEROL/IPRATROPIUM 2.5MG/0.5MG, 3 ML NPPB SCH ×4 (02:28→20:15)
[2018-12-19 04:38] LABS: ANION GAP 9 mmol/L (5-15); CALCIUM 9.1 mg/dL (8.5-10.1); CHLORIDE 102 mmol/L (98-107); CREATININE 1.32 mg/dL (0.7-1.3)
[2018-12-19] MEDS: methylPREDNISolone SOD SUCC 40 MG/ML IVPush SCH ×3 (05:35→21:16)
[2018-12-19] MEDS: GUAIFENESIN 200 MG TABLET PO SCH ×4 (05:36→21:16)
[2018-12-19 05:52] LABS: MEAN CORPUSCULAR HEMOGLOBIN 29.5 pg (27.5-34.5); MEAN CORPUSCULAR HGB CONC 32.5 g/dL (33.2-36.2); MEAN PLATELET VOLUME 8.5 fL (7.4-10.4); PLATELET COUNT 231 x10^3/uL (130-400); RED BLOOD COUNT 4.83 x10^6/uL (4.38-5.82); RED CELL DISTRIBUTION WIDTH 13.8 % (9.4-14.8)
[2018-12-19 05:53] LABS: MD YES
[2018-12-19 05:56] LABS: <RBC MORPHOLOGY> NORMAL; LYMPH#(MANUAL) 1.18 x10^3/uL (1-3.4); LYMPHS% (MANUAL) 9 % (22-44); MONOS#(MANUAL) 0.52 x10^3/uL (0.3-2.7); MONOS% (MANUAL) 4 % (2-9); SEGS% (MANUAL) 87 % (42-75)
[2018-12-19 05:57] LABS: <PLATELET ESTIMATE> ADEQUATE; <PLT MORPHOLOGY> NORMAL PLT MORPH
[2018-12-19] MEDS: BUDESONIDE 0.5 MG/2 ML INHA NPPB SCH ×2 (06:33→20:15)
[2018-12-19 07:31] VITALS: BP 181/83
[2018-12-19] MEDS: MONTELUKAST 10 MG TABLET PO SCH (08:48)
[2018-12-19] MEDS: HYDROCHLOROTHIAZIDE 25 MG TABLET PO SCH (08:48)
[2018-12-19] MEDS: LOSARTAN 50MG TABLET PO SCH (08:48)
[2018-12-19] MEDS: SODIUM CHLORIDE FLUSH 10ML SYR IVF SCH ×2 (08:49→21:16)
[2018-12-19] MEDS: ENOXAPARIN 40 MG/0.4 ML SQ SCH (08:49)
[2018-12-19] MEDS: SENNA/DOCUSATE TABLET PO SCH ×2 (08:50→21:16)
[2018-12-19] MEDS: POTASSIUM CHLORIDE 20 MEQ TAB.ER.PRT PO SCH ×3 (09:06→21:16)
[2018-12-19] MEDS: GUAIFENESIN/DM 100-10MG, 5ML UDC PO PRN (09:07)
[2018-12-19 11:06] VITALS: BP 131/73
[2018-12-19 13:44] VITALS: BP 121/67
[2018-12-19] MEDS ORDERED: METOCLOPRAMIDE 5 MG/ML, 2ML ONE (17:43)
[2018-12-19 19:02] VITALS: BP 155/75
[2018-12-19] MEDS ORDERED: METOCLOPRAMIDE 5 MG/ML, 2ML IVPush PRN (23:00)
[2018-12-20 01:02] VITALS: BP 166/88
[2018-12-20] MEDS: ALBUTEROL/IPRATROPIUM 2.5MG/0.5MG, 3 ML NPPB SCH ×3 (02:30→13:16)
[2018-12-20] MEDS: POTASSIUM CHLORIDE 20 MEQ TAB.ER.PRT PO SCH (02:47)
[2018-12-20] MEDS: GUAIFENESIN 200 MG TABLET PO SCH ×3 (04:58→16:57)
[2018-12-20] MEDS: methylPREDNISolone SOD SUCC 40 MG/ML IVPush SCH ×2 (04:59→13:43)
[2018-12-20] MEDS: BUDESONIDE 0.5 MG/2 ML INHA NPPB SCH (07:00)
[2018-12-20 07:20] VITALS: BP 164/77
[2018-12-20 08:36] LABS: MEAN CORPUSCULAR HEMOGLOBIN 29.7 pg (27.5-34.5); MEAN CORPUSCULAR HGB CONC 32.6 g/dL (33.2-36.2); MEAN CORPUSCULAR VOLUME 90.9 fL (81-97); MEAN PLATELET VOLUME 7.5 fL (7.4-10.4); PLATELET COUNT 287 x10^3/uL (130-400); RED BLOOD COUNT 5.05 x10^6/uL (4.38-5.82); RED CELL DISTRIBUTION WIDTH 13.6 % (9.4-14.8)
[2018-12-20] MEDS: LOSARTAN 50MG TABLET PO SCH (08:38)
[2018-12-20] MEDS: HYDROCHLOROTHIAZIDE 25 MG TABLET PO SCH (08:38)
[2018-12-20] MEDS: SENNA/DOCUSATE TABLET PO SCH (08:39)
[2018-12-20] MEDS: SODIUM CHLORIDE FLUSH 10ML SYR IVF SCH (08:39)
[2018-12-20] MEDS: ENOXAPARIN 40 MG/0.4 ML SQ SCH (08:39)
[2018-12-20] MEDS: MONTELUKAST 10 MG TABLET PO SCH (08:39)
[2018-12-20 08:43] LABS: ANION GAP 8 mmol/L (5-15); CALCIUM 9.1 mg/dL (8.5-10.1); CHLORIDE 102 mmol/L (98-107); CREATININE 1.26 mg/dL (0.7-1.3)
[2018-12-20 09:06] LABS: BASOPHILS # (AUTO) 0.02 x10^3/uL (0-0.1); BASOPHILS % (AUTO) 0 % (0-1); EOSINOPHILS # (AUTO) 0.01 x10^3/uL (0-0.4); EOSINOPHILS % (AUTO) 0 % (1-7); LYMPHOCYTES # (AUTO) 0.63 x10^3/uL (1-3.4); LYMPHOCYTES % (AUTO) 5 % (22-44); MD SCAN; MONOCYTES # (AUTO) 1.06 x10^3/uL (0.2-0.8); MONOCYTES % (AUTO) 8 % (2-9); NEUTROPHILS # (AUTO) 11.91 x10^3/uL (1.8-6.8); NEUTROPHILS % (AUTO) 87 % (42-75)
[2018-12-20 13:30] VITALS: BP 169/77
[2018-12-20] MEDS ORDERED: PRED10TA PO (19:22)
[2018-12-20] MEDS ORDERED: GUAI200T3 PO (19:22)
[2018-12-20 19:31] VITALS: BP 180/82
== END 2018-12-20 20:57 | disposition home health service (06) | DRG 189 ==
LOC: ED 21:27 → CCU 21:54 → 5SO 12-17 10:34 → UNDODISIN 12-20 19:35
PROVIDERS: ADMIT Internal Medicine; ATTEND Internal Medicine
PROC: 5A09357 Assistance with Respiratory Ventilation, Less than 24 Consecutive Hours, Continuous Positive Airway Pressure (ICD-10-PCS; principal; 2018-12-15)
PROC: 5A09357 Assistance with Respiratory Ventilation, Less than 24 Consecutive Hours, Continuous Positive Airway Pressure (ICD-10-PCS; 2018-12-16)
PROC: 5A09357 Assistance with Respiratory Ventilation, Less than 24 Consecutive Hours, Continuous Positive Airway Pressure (ICD-10-PCS; 2018-12-17)
DX: J96.01 Acute respiratory failure with hypoxia (principal); I47.1 Supraventricular tachycardia; K56.7 Ileus, unspecified; E66.9 Obesity, unspecified; J96.02 Acute respiratory failure with hypercapnia; E78.5 Hyperlipidemia, unspecified; Z68.37 Body mass index [BMI] 37.0-37.9, adult; I10 Essential (primary) hypertension; G47.33 Obstructive sleep apnea (adult) (pediatric); J20.9 Acute bronchitis, unspecified; J43.9 Emphysema, unspecified; T38.0X5A Adverse effect of glucocorticoids and synthetic analogues, initial encounter; Z80.51 Family history of malignant neoplasm of kidney; Z82.5 Family history of asthma and other chronic lower respiratory diseases; Z87.891 Personal history of nicotine dependence; Z99.81 Dependence on supplemental oxygen
CPT/HCPCS: 36415; 36600; 74018; 84145; 99291; J7613; J7620; J7626; 71045; 80048; 80053; 82803; 83735; 83880; 84100; 84484; 85025; 87040; 87081; 93005; 93306; 94640; 94660; 96374; G0378; J1644; J1650; J2405; J7060; J1940; J2765; J2920; J2930; J3475

== ENCOUNTER 2019-01-25 09:51 | Inpatient (IN) | payer OTHER, MEDICARE ==
[~2019-01-25] VITALS: Ht 170.2 cm; Wt 117.4 kg
[2019-01-30 12:09] VITALS: BP 175/95
== END 2019-01-30 11:00 | disposition home health service (06) | DRG 291 ==
LOC: ED 11:35 → EDIP 13:02 → 4NOR 13:54 → 4WST 01-26 19:21
PROVIDERS: ADMIT Internal Medicine; ATTEND Internal Medicine
DX: I11.0 Hypertensive heart disease with heart failure (principal); J96.21 Acute and chronic respiratory failure with hypoxia; Z68.41 Body mass index [BMI] 40.0-44.9, adult; I50.30 Unspecified diastolic (congestive) heart failure; D72.829 Elevated white blood cell count, unspecified; R91.1 Solitary pulmonary nodule; E66.01 Morbid (severe) obesity due to excess calories; E78.5 Hyperlipidemia, unspecified; J43.9 Emphysema, unspecified; T38.0X5A Adverse effect of glucocorticoids and synthetic analogues, initial encounter; Z71.6 Tobacco abuse counseling; Z87.891 Personal history of nicotine dependence; Z99.81 Dependence on supplemental oxygen
CPT/HCPCS: 36415; 36600; 74018; 84145; 99285; J7620; 71275; 80053; 82803; 83605; 83735; 84100; 84439; 84443; 84484; 85025; 85379; 87070; 87205; 93005; 94640; G0378; J1650; Q9967; C9113; J1940; J2930; J7030; J7512

== ENCOUNTER 2019-05-03 20:13 | Inpatient (IN) | payer OTHER, MEDICARE ==
[~2019-05-03] VITALS: Ht 170.2 cm; Wt 114.6 kg
[~2019-05-03 20:13] MED LIST changes: +ACET-1600 PO; +ACID1TAB7 PO; +ALBU8.5H8 INH; +ATOR40TA78 PO; +BECL10.62 INH; +CARV12.52 PO; +CARV6.2512 PO; +ESOM20CA PO; +FURO-93 PO; +FURO20TA3 PO; +GUAI200T37 PO; +HYDR-3341 PO; +ISOS10TA2 PO; +KLOR-CON; +LOSA1TAB12 PO; +LOSA50TA14 PO; +POTA10TA6 PO; +POTASSIUM 10 MEQ; +PRED10TA PO; +PRED10TA14 PO
--- NOTE | 2019-05-03 20:27 | NUR ---
EKG DONE IN TRIAGE. PT. TAKEN BACK TO T3 PT. APPEARING TO BECOME VERY EXHAUSTED.
[2019-05-03] MEDS ORDERED: SODIUM CHLORIDE FLUSH 10ML SYR IVF ONE (20:30)
[2019-05-03] MEDS ORDERED: methylPREDNISolone SOD SUCC 125 MG/2 ML IV ONE (20:30)
[2019-05-03] MEDS ORDERED: ALBUTEROL SULFATE 2.5 MG/3 ML NPPB ONE (20:30)
[2019-05-03] MEDS ORDERED: IPRATROPIUM 0.5 MG/2.5 ML INHA NPPB ONE (20:30)
--- NOTE | 2019-05-03 20:35 | NUR ---
PT PLACED ON ALL MONITORING DEVICES IN ROOM. ST ON MONITOR, WORK OF BREATHING IMPROVED AT THIS TIME, RATE OF 24. IV PLACED, BC AND LABS DRAWN WITH START. RT AT BS TO ADMINISTER OPTIFLOW. VSS/UPDATED IN COMPUTER.
[2019-05-03] MEDS ORDERED: ACETAMINOPHEN 500 MG TABLET ONE (20:40)
[2019-05-03] MEDS ORDERED: methylPREDNISolone SOD SUCC 125 MG/2 ML ONE (20:40)
[2019-05-03 20:45] LABS: MEAN CORPUSCULAR HEMOGLOBIN 30.7 pg (27.5-34.5); MEAN CORPUSCULAR HGB CONC 32.7 g/dL (33.2-36.2); MEAN PLATELET VOLUME 8.2 fL (7.4-10.4); PLATELET COUNT 238 x10^3/uL (130-400); RED BLOOD COUNT 4.99 x10^6/uL (4.38-5.82); RED CELL DISTRIBUTION WIDTH 14.2 % (9.4-14.8)
--- NOTE | 2019-05-03 20:46 | NUR ---
TYLENOL 1 GM GIVEN PO, SOLUMEDROL 125 MG IVP GIVEN PER ERP ORDER. DUONEB BY RT STARTED.
[2019-05-03 20:57] LABS: ALANINE AMINOTRANSFERASE 29 U/L (12-78); ALBUMIN 4.1 g/dL (3.4-5.0); ANION GAP 5 mmol/L (5-15); CALCIUM 9.2 mg/dL (8.5-10.1); CHLORIDE 107 mmol/L (98-107); CREATININE 1.72 mg/dL (0.7-1.3)
[2019-05-03 20:58] LABS: FIO2 70 %
[2019-05-03] MEDS ORDERED: ACETAMINOPHEN 500 MG TABLET PO ONE (21:00)
[2019-05-03 21:01] LABS: ALKALINE PHOSPHATASE 95 U/L (45-117); BILIRUBIN,TOTAL 0.6 mg/dL (0.2-1.0); TOTAL PROTEIN 7.5 g/dL (6.4-8.2); TROPONIN I < 0.015 ng/mL (0.000-0.045)
[2019-05-03 21:19] LABS: RAPID INFLUENZA A Negative (Negative); RAPID INFLUENZA B Negative (Negative)
[2019-05-03] MEDS ORDERED: CEFTRIAXONE PMX 1GM/50ML 50 ML ONE (21:21)
--- NOTE | 2019-05-03 21:40 | NUR ---
BED ASSIGNED. REPORT GIVEN BY RUPERTO ANTOINE TO CCU RN.
[2019-05-03 22:20] VITALS: BP 133/71
[2019-05-03] MEDS: FUROSEMIDE 20 MG TABLET PO SCH (22:55)
[2019-05-03] MEDS ORDERED: ALBUTEROL/IPRATROPIUM 2.5MG/0.5MG, 3 ML NPPB PRN (23:00)
[2019-05-03] MEDS ORDERED: hydrALAzine 20 MG/ML, 1ML IV PRN (23:00)
[2019-05-04 01:50] LABS: MD YES
[2019-05-04 01:53] LABS: <PLATELET ESTIMATE> ADEQUATE; <PLT MORPHOLOGY> NORMAL PLT MORPH; <RBC MORPHOLOGY> NORMAL; BAND#(MANUAL) 0.21 x10^3/uL; BANDS%(MANUAL) 1 % (0-7); LYMPH#(MANUAL) 0.42 x10^3/uL (1-3.4); LYMPHS% (MANUAL) 2 % (22-44); MONOS#(MANUAL) 1.89 x10^3/uL (0.3-2.7); MONOS% (MANUAL) 9 % (2-9); SEG#(MANUAL) 18.48 x10^3/uL (1.8-6.8); SEGS% (MANUAL) 88 % (42-75)
[2019-05-04 01:54] LABS: INTERNATIONAL NORMALIZED RATIO 0.96 (0.93-1.1); PROTHROMBIN TIME 10.1 Seconds (9.6-11.5)
[2019-05-04 02:50] LABS: MEAN CORPUSCULAR HEMOGLOBIN 30.9 pg (27.5-34.5); MEAN CORPUSCULAR HGB CONC 32.8 g/dL (33.2-36.2); MEAN CORPUSCULAR VOLUME 94.1 fL (81-97); PLATELET COUNT 203 x10^3/uL (130-400); RED BLOOD COUNT 4.68 x10^6/uL (4.38-5.82); RED CELL DISTRIBUTION WIDTH 14.3 % (9.4-14.8)
[2019-05-04 03:00] VITALS: BP 137/80
[2019-05-04 03:04] LABS: ANION GAP 5 mmol/L (5-15); CALCIUM 9.2 mg/dL (8.5-10.1); CHLORIDE 106 mmol/L (98-107); CREATININE 1.54 mg/dL (0.7-1.3)
[2019-05-04 03:46] LABS: MD YES
[2019-05-04 03:48] LABS: BAND#(MANUAL) 0.94 x10^3/uL; BANDS%(MANUAL) 4 % (0-7); LYMPH#(MANUAL) 0.47 x10^3/uL (1-3.4); LYMPHS% (MANUAL) 2 % (22-44); MONOS#(MANUAL) 0.94 x10^3/uL (0.3-2.7); MONOS% (MANUAL) 4 % (2-9); SEG#(MANUAL) 21.15 x10^3/uL (1.8-6.8); SEGS% (MANUAL) 90 % (42-75)
[2019-05-04 03:49] LABS: <PLATELET ESTIMATE> ADEQUATE; <PLT MORPHOLOGY> NORMAL PLT MORPH; <RBC MORPHOLOGY> NORMAL
[2019-05-04] MEDS: FUROSEMIDE 20 MG TABLET PO SCH (05:31)
[2019-05-04] MEDS: ALBUTEROL SULFATE 2.5 MG/3 ML NPPB SCH ×2 (07:00→14:04)
[2019-05-04] MEDS: BUDESONIDE 0.5 MG/2 ML INHA INH SCH ×2 (07:00→19:40)
[2019-05-04 07:17] VITALS: BP 156/80
[2019-05-04] MEDS ORDERED: AZITHROMYCIN 500 MG in SODIUM CHLORIDE 0.9% 250 ML IV SCH (08:00)
[2019-05-04] MEDS: CEFTRIAXONE PMX 1GM/50ML 50 ML IV SCH (09:21)
[2019-05-04 15:13] VITALS: BP 153/79
[2019-05-04 19:13] VITALS: BP 148/72
[2019-05-04] MEDS ORDERED: FUROSEMIDE 40 MG/4 ML IV ONE (19:30)
[2019-05-04] MEDS: ALBUTEROL/IPRATROPIUM 2.5MG/0.5MG, 3 ML NPPB SCH (19:40)
[2019-05-04] MEDS: CARVEDILOL 12.5 MG TABLET PO SCH ×2 (21:00→21:41)
[2019-05-04 21:40] VITALS: BP 158/81
[2019-05-04] MEDS: MONTELUKAST 10 MG TABLET PO SCH (21:41)
[2019-05-04] MEDS: HEPARIN 5,000 UNITS/ML, 1ML SQ SCH (21:41)
[2019-05-04] MEDS: ATORVASTATIN 40 MG TABLET PO SCH (21:41)
[2019-05-04] MEDS: DOXYCYCLINE 100MG TABLET PO SCH (21:41)
[2019-05-04] MEDS: ISOSORBIDE DINITRATE 10 MG TABLET PO SCH (21:41)
[2019-05-04] MEDS: methylPREDNISolone SOD SUCC 125 MG/2 ML IVPush SCH (21:44)
[2019-05-05 00:16] VITALS: BP 135/79
[2019-05-05] MEDS: methylPREDNISolone SOD SUCC 125 MG/2 ML IVPush SCH ×4 (03:54→23:39)
[2019-05-05 04:49] LABS: MEAN CORPUSCULAR HEMOGLOBIN 30.9 pg (27.5-34.5); MEAN CORPUSCULAR HGB CONC 32.5 g/dL (33.2-36.2); MEAN PLATELET VOLUME 8.4 fL (7.4-10.4); PLATELET COUNT 206 x10^3/uL (130-400); RED BLOOD COUNT 4.36 x10^6/uL (4.38-5.82); RED CELL DISTRIBUTION WIDTH 14.5 % (9.4-14.8)
[2019-05-05 04:54] LABS: ANION GAP 4 mmol/L (5-15); CHLORIDE 102 mmol/L (98-107)
[2019-05-05 05:47] LABS: BASOPHILS # (AUTO) 0.01 x10^3/uL (0-0.1); BASOPHILS % (AUTO) 0 % (0-1); EOSINOPHILS # (AUTO) 0.17 x10^3/uL (0-0.4); EOSINOPHILS % (AUTO) 1 % (1-7); LYMPHOCYTES # (AUTO) 0.63 x10^3/uL (1-3.4); LYMPHOCYTES % (AUTO) 3 % (22-44); MD SCAN; MONOCYTES % (AUTO) 3 % (2-9); NEUTROPHILS # (AUTO) 17.44 x10^3/uL (1.8-6.8); NEUTROPHILS % (AUTO) 93 % (42-75)
[2019-05-05] MEDS: ALBUTEROL/IPRATROPIUM 2.5MG/0.5MG, 3 ML NPPB SCH ×3 (06:00→19:28)
[2019-05-05 06:03] VITALS: BP 135/78
[2019-05-05] MEDS: HEPARIN 5,000 UNITS/ML, 1ML SQ SCH ×3 (06:04→20:17)
[2019-05-05] MEDS: PANTOPROZOLE 40MG TABLET PO SCH (06:04)
[2019-05-05 06:56] VITALS: BP 146/77
[2019-05-05] MEDS ORDERED: POLYETHYLENE GLYCOL 17 GM PACKET NG PRN (08:00)
[2019-05-05] MEDS: BUDESONIDE 0.5 MG/2 ML INHA INH SCH ×2 (08:12→19:28)
[2019-05-05] MEDS: CEFTRIAXONE PMX 1GM/50ML 50 ML IV SCH (09:37)
[2019-05-05] MEDS: ESCITALOPRAM 10MG TABLET PO SCH (09:44)
[2019-05-05] MEDS: ISOSORBIDE DINITRATE 10 MG TABLET PO SCH ×3 (09:48→20:17)
[2019-05-05] MEDS: DOXYCYCLINE 100MG TABLET PO SCH ×2 (09:50→20:16)
[2019-05-05] MEDS: SENNA/DOCUSATE TABLET PO SCH ×2 (09:51→20:16)
[2019-05-05] MEDS: FUROSEMIDE 20 MG/2 ML IV SCH (09:58)
[2019-05-05 12:00] VITALS: BP 142/70
[2019-05-05 17:38] VITALS: BP 151/72
[2019-05-05] MEDS: CARVEDILOL 3.125 MG TABLET PO SCH (17:52)
[2019-05-05 20:15] VITALS: BP 136/68
[2019-05-05] MEDS: ATORVASTATIN 40 MG TABLET PO SCH (20:16)
[2019-05-05] MEDS: MONTELUKAST 10 MG TABLET PO SCH (20:16)
[2019-05-06 01:22] VITALS: BP 146/79
[2019-05-06 04:59] VITALS: BP 138/71
[2019-05-06] MEDS: methylPREDNISolone SOD SUCC 125 MG/2 ML IVPush SCH ×2 (05:01→12:00)
[2019-05-06] MEDS: HEPARIN 5,000 UNITS/ML, 1ML SQ SCH (05:01)
[2019-05-06] MEDS: CARVEDILOL 3.125 MG TABLET PO SCH (05:01)
[2019-05-06] MEDS: PANTOPROZOLE 40MG TABLET PO SCH (05:01)
[2019-05-06 06:28] LABS: BASOPHILS # (AUTO) 0.01 x10^3/uL (0-0.1); BASOPHILS % (AUTO) 0 % (0-1); EOSINOPHILS % (AUTO) 0 % (1-7); LYMPHOCYTES # (AUTO) 0.66 x10^3/uL (1-3.4); LYMPHOCYTES % (AUTO) 4 % (22-44); MD NO; MEAN CORPUSCULAR HEMOGLOBIN 30.9 pg (27.5-34.5); MEAN CORPUSCULAR HGB CONC 32.5 g/dL (33.2-36.2); MEAN CORPUSCULAR VOLUME 94.9 fL (81-97); MEAN PLATELET VOLUME 8.8 fL (7.4-10.4); MONOCYTES % (AUTO) 4 % (2-9); NEUTROPHILS # (AUTO) 15.79 x10^3/uL (1.8-6.8); NEUTROPHILS % (AUTO) 92 % (42-75); PLATELET COUNT 200 x10^3/uL (130-400); RED BLOOD COUNT 4.31 x10^6/uL (4.38-5.82); RED CELL DISTRIBUTION WIDTH 14.5 % (9.4-14.8)
[2019-05-06 06:38] LABS: CHLORIDE 103 mmol/L (98-107)
[2019-05-06 06:46] LABS: ANION GAP 6 mmol/L (5-15); CALCIUM 9.2 mg/dL (8.5-10.1); CREATININE 1.14 mg/dL (0.7-1.3)
[2019-05-06] MEDS: ALBUTEROL/IPRATROPIUM 2.5MG/0.5MG, 3 ML NPPB SCH ×2 (07:38→11:00)
[2019-05-06] MEDS: BUDESONIDE 0.5 MG/2 ML INHA INH SCH (07:38)
[2019-05-06 08:34] VITALS: BP 139/66
[2019-05-06] MEDS: SENNA/DOCUSATE TABLET PO SCH (09:00)
[2019-05-06] MEDS: CEFTRIAXONE PMX 1GM/50ML 50 ML IV SCH (09:07)
[2019-05-06] MEDS: DOXYCYCLINE 100MG TABLET PO SCH (09:09)
[2019-05-06] MEDS: ISOSORBIDE DINITRATE 10 MG TABLET PO SCH (09:09)
[2019-05-06] MEDS: FUROSEMIDE 20 MG/2 ML IV SCH (09:09)
[2019-05-06] MEDS: ESCITALOPRAM 10MG TABLET PO SCH (09:09)
[2019-05-06] MEDS ORDERED: ESCI10TA PO (09:11)
[2019-05-06] MEDS ORDERED: DOXY100T PO (09:11)
[2019-05-06] MEDS ORDERED: AMOX-291 PO (09:11)
[2019-05-06] MEDS ORDERED: CARV3.1212 PO (09:11)
[2019-05-06] MEDS ORDERED: PRED20TA PO (09:11)
== END 2019-05-06 13:15 | disposition home or self-care (01) | DRG 871 ==
LOC: ED 21:40 → EDIP 05-04 02:19 → 4WST 05-04 02:53
PROVIDERS: ADMIT Internal Medicine; ATTEND Family Medicine
DX: A41.9 Sepsis, unspecified organism (principal); I50.33 Acute on chronic diastolic (congestive) heart failure; J15.9 Unspecified bacterial pneumonia; J96.21 Acute and chronic respiratory failure with hypoxia; N17.9 Acute kidney failure, unspecified; E03.9 Hypothyroidism, unspecified; E66.9 Obesity, unspecified; Z68.39 Body mass index [BMI] 39.0-39.9, adult; E78.5 Hyperlipidemia, unspecified; F32.9 Major depressive disorder, single episode, unspecified; I11.0 Hypertensive heart disease with heart failure; J43.9 Emphysema, unspecified; Z79.52 Long term (current) use of systemic steroids; Z87.891 Personal history of nicotine dependence; Z99.81 Dependence on supplemental oxygen
CPT/HCPCS: 36415; 36600; 84145; 87400; J7613; J7620; J7626; J7644; 71045; 80048; 80053; 82803; 83605; 83735; 83880; 84484; 85025; 85610; 85730; 87040; 93005; 94640; 99291; G0378; J0456; J0696; J1644; J1940; J2930; J7050; J7512

== ENCOUNTER 2019-07-03 03:14 | Inpatient (IN) | payer OTHER ==
[~2019-07-03] VITALS: Ht 170.2 cm; Wt 113.5 kg
[~2019-07-03 03:14] MED LIST changes: +AMOX-291 PO; +CARV3.1212 PO; +ESCI10TA PO
[2019-07-03] MEDS ORDERED: methylPREDNISolone SOD SUCC 125 MG/2 ML ONE (03:41)
[2019-07-03] MEDS ORDERED: FUROSEMIDE 40 MG/4 ML ONE (03:41)
[2019-07-03] MEDS ORDERED: NITROGLYCERIN SINGLE TAB 0.4 MG SL ONE (03:56)
[2019-07-03] MEDS ORDERED: ASPIRIN 81 MG TABLET CHEW ONE (03:56)
[2019-07-03] MEDS ORDERED: FUROSEMIDE 40 MG/4 ML IV ONE (04:00)
[2019-07-03] MEDS ORDERED: ASPIRIN 81 MG TABLET CHEW PO ONE (04:00)
[2019-07-03] MEDS ORDERED: ALBUTEROL/IPRATROPIUM 2.5MG/0.5MG, 3 ML NPPB SCH (04:00)
[2019-07-03] MEDS ORDERED: methylPREDNISolone SOD SUCC 125 MG/2 ML IV ONE (04:00)
[2019-07-03] MEDS ORDERED: NITROGLYCERIN 0.4 MG BOTTLE (25 TABS) SL ONE (04:00)
[2019-07-03 04:02] LABS: BASOPHILS # (AUTO) 0.03 x10^3/uL (0-0.1); BASOPHILS % (AUTO) 0 % (0-1); EOSINOPHILS # (AUTO) 0.34 x10^3/uL (0-0.4); EOSINOPHILS % (AUTO) 4 % (1-7); LYMPHOCYTES # (AUTO) 1.29 x10^3/uL (1-3.4); LYMPHOCYTES % (AUTO) 14 % (22-44); MD NO; MEAN CORPUSCULAR HEMOGLOBIN 29.7 pg (27.5-34.5); MEAN CORPUSCULAR HGB CONC 32.2 g/dL (33.2-36.2); MEAN CORPUSCULAR VOLUME 92.3 fL (81-97); MEAN PLATELET VOLUME 7.8 fL (7.4-10.4); MONOCYTES # (AUTO) 1.13 x10^3/uL (0.2-0.8); MONOCYTES % (AUTO) 13 % (2-9); NEUTROPHILS # (AUTO) 6.25 x10^3/uL (1.8-6.8); NEUTROPHILS % (AUTO) 69 % (42-75); PLATELET COUNT 282 x10^3/uL (130-400); RED BLOOD COUNT 4.14 x10^6/uL (4.38-5.82); RED CELL DISTRIBUTION WIDTH 14.1 % (9.4-14.8)
[2019-07-03 04:12] LABS: ALANINE AMINOTRANSFERASE 19 U/L (12-78); ALBUMIN 3.5 g/dL (3.4-5.0); ANION GAP 4 mmol/L (5-15); CALCIUM 8.8 mg/dL (8.5-10.1); CHLORIDE 107 mmol/L (98-107); CREATININE 1.12 mg/dL (0.7-1.3)
[2019-07-03 04:17] LABS: ALKALINE PHOSPHATASE 98 U/L (45-117); BILIRUBIN,TOTAL 0.5 mg/dL (0.2-1.0); TROPONIN I < 0.015 ng/mL (0.000-0.045)
--- NOTE | 2019-07-03 04:39 | NUR ---
lab called and reports they will re-draw abg.
[2019-07-03] MEDS ORDERED: ALBUTEROL/IPRATROPIUM 2.5MG/0.5MG, 3 ML ONE (06:15)
[2019-07-03] MEDS ORDERED: ALBUTEROL/IPRATROPIUM 2.5MG/0.5MG, 3 ML NPPB ONE (06:30)
--- NOTE | 2019-07-03 07:00 | NUR ---
Received bedside report from RUPERTO Kinney. All questions answered. Pt resting on gurney with US at bedside. Pt connected to NIBP cuff, continous pulse ox, and felter tennis balls. NADN. No needs expressed at this time. Assuming care of pt. Call light within reach.
--- NOTE | 2019-07-03 07:41 | NUR ---
Pt denies pain at this time. Called housekeeping and requested hospital bed for pt. Pt apprecaitive. Pt connected to NIBP cuff, continous pulse ox, and alarm security or surveillance monitor at this time. Call light within reach. Urinal within reach. Pt states baseline oxygen is 3L via NC at home and 4L via NC when walking.
--- NOTE | 2019-07-03 08:04 | NUR ---
Provided hospital bed for pt. Pt apprecaitive. Ordered cardiac low sodium diet for breakfast for pt. Pt apprecaitive. NADN. No other needs expressed.
--- NOTE | 2019-07-03 08:19 | NUR ---
Breakfast tray provided for pt. Pt appreciative.
[2019-07-03] MEDS ORDERED: ONDANSETRON ODT 4 MG PO PRN (09:00)
[2019-07-03] MEDS ORDERED: ACETAMINOPHEN 325 MG TABLET PO PRN (09:00)
[2019-07-03] MEDS: methylPREDNISolone SOD SUCC 125 MG/2 ML IVPush SCH ×3 (09:00→21:50)
[2019-07-03] MEDS ORDERED: ONDANSETRON 2MG/ML, 2ML IVPush PRN (09:00)
[2019-07-03] MEDS ORDERED: HYDROcodone/APAP 5/325 TABLET PO PRN (09:00)
[2019-07-03] MEDS ORDERED: PROMETHAZINE 25 MG/ML, 1ML IM PRN (09:00)
[2019-07-03] MEDS ORDERED: DOCUSATE 100 MG CAPSULE PO PRN (09:00)
[2019-07-03] MEDS ORDERED: hydrALAzine 20 MG/ML, 1ML IVPush PRN (09:00)
[2019-07-03] MEDS ORDERED: BISACODYL 10 MG SUPP PR PRN (09:00)
[2019-07-03] MEDS ORDERED: morphine SULFATE 10 MG/ML, 1ML IVPush PRN (09:00)
[2019-07-03 09:53] LABS: FREE T4 (FREE THYROXINE) 1.07 ng/dL (0.76-1.46)
--- NOTE | 2019-07-03 10:16 | NUR ---
PHARMACY REQUEST SENT FOR MEDS.
--- NOTE | 2019-07-03 10:33 | NUR ---
[facility] TELEPHONE HAND-OFF REPORT GIVEN TO RUPERTO WHITLEY PT READY TO GO TO [facility].
[2019-07-03 10:52] VITALS: BP 151/86
[2019-07-03] MEDS: ESCITALOPRAM 10MG TABLET PO SCH (11:55)
[2019-07-03] MEDS: OMEPRAZOLE 20 MG CAPSULE.DR PO SCH (11:56)
[2019-07-03] MEDS: LOSARTAN 50MG TABLET PO SCH (11:56)
[2019-07-03] MEDS: ENOXAPARIN 40 MG/0.4 ML SQ SCH (11:56)
[2019-07-03] MEDS: ISOSORBIDE DINITRATE 10 MG TABLET PO SCH ×3 (11:56→21:50)
[2019-07-03] MEDS: DOXYCYCLINE 100MG TABLET PO SCH ×2 (11:57→21:49)
[2019-07-03] MEDS: ASPIRIN 325 MG TABLET EC PO SCH (11:57)
[2019-07-03 12:49] LABS: MICROSCOPIC NOT IND
[2019-07-03 12:55] LABS: CULTURE INDICATED? NO
[2019-07-03 13:23] VITALS: BP 141/68
[2019-07-03] MEDS: FUROSEMIDE 40 MG/4 ML IV SCH (17:00)
[2019-07-03] MEDS: CARVEDILOL 3.125 MG TABLET PO SCH (17:04)
[2019-07-03 20:08] VITALS: BP 145/73
[2019-07-03] MEDS: ALBUTEROL/IPRATROPIUM 2.5MG/0.5MG, 3 ML NPPB SCH (20:12)
[2019-07-03] MEDS: ATORVASTATIN 40 MG TABLET PO SCH (21:49)
[2019-07-03] MEDS: MONTELUKAST 10 MG TABLET PO SCH (21:50)
[2019-07-04 02:55] VITALS: BP 131/69
[2019-07-04] MEDS: methylPREDNISolone SOD SUCC 125 MG/2 ML IVPush SCH ×4 (03:35→21:46)
[2019-07-04 05:42] VITALS: BP 144/73
[2019-07-04] MEDS: CARVEDILOL 3.125 MG TABLET PO SCH ×2 (05:44→17:22)
[2019-07-04] MEDS: ASPIRIN 325 MG TABLET EC PO SCH (05:44)
[2019-07-04 06:02] LABS: ALBUMIN 3.4 g/dL (3.4-5.0); ANION GAP 7 mmol/L (5-15); CALCIUM 8.8 mg/dL (8.5-10.1); CHLORIDE 105 mmol/L (98-107)
[2019-07-04 06:04] LABS: BASOPHILS # (AUTO) 0.02 x10^3/uL (0-0.1); BASOPHILS % (AUTO) 0 % (0-1); EOSINOPHILS % (AUTO) 0 % (1-7); LYMPHOCYTES # (AUTO) 0.67 x10^3/uL (1-3.4); LYMPHOCYTES % (AUTO) 5 % (22-44); MD NO; MEAN CORPUSCULAR HEMOGLOBIN 29.7 pg (27.5-34.5); MEAN CORPUSCULAR HGB CONC 32.6 g/dL (33.2-36.2); MEAN CORPUSCULAR VOLUME 91.2 fL (81-97); MEAN PLATELET VOLUME 7.7 fL (7.4-10.4); MONOCYTES # (AUTO) 0.44 x10^3/uL (0.2-0.8); MONOCYTES % (AUTO) 3 % (2-9); NEUTROPHILS # (AUTO) 12.22 x10^3/uL (1.8-6.8); NEUTROPHILS % (AUTO) 92 % (42-75); PLATELET COUNT 270 x10^3/uL (130-400); RED BLOOD COUNT 4.05 x10^6/uL (4.38-5.82); RED CELL DISTRIBUTION WIDTH 13.6 % (9.4-14.8)
[2019-07-04 06:06] LABS: ALANINE AMINOTRANSFERASE 13 U/L (12-78); ALKALINE PHOSPHATASE 89 U/L (45-117); BILIRUBIN,TOTAL 0.5 mg/dL (0.2-1.0); CHOL/HDL RATIO 3.7; CHOLESTEROL, TOTAL 174 mg/dL (140-239); HDL CHOL % 27 % (26-37); HDL CHOLESTEROL (DIRECT) 47 mg/dL (40-60); LDL CHOLESTEROL,CALCULATED 114 mg/dL (54-169); LDL/HDL RATIO 2.4 (0.5-3.0); TOTAL PROTEIN 6.8 g/dL (6.4-8.2); TRIGLYCERIDES 65 mg/dL (50-200); VLDL CHOLESTEROL 13 mg/dL (0-25)
[2019-07-04 06:42] VITALS: BP 130/81
[2019-07-04] MEDS: FUROSEMIDE 40 MG/4 ML IV SCH ×2 (07:59→17:22)
[2019-07-04] MEDS: LOSARTAN 50MG TABLET PO SCH (07:59)
[2019-07-04] MEDS: ESCITALOPRAM 10MG TABLET PO SCH (07:59)
[2019-07-04] MEDS: DOXYCYCLINE 100MG TABLET PO SCH ×2 (07:59→21:46)
[2019-07-04] MEDS: ISOSORBIDE DINITRATE 10 MG TABLET PO SCH ×3 (08:00→21:47)
[2019-07-04] MEDS: OMEPRAZOLE 20 MG CAPSULE.DR PO SCH (08:00)
[2019-07-04] MEDS: ALBUTEROL/IPRATROPIUM 2.5MG/0.5MG, 3 ML NPPB SCH ×3 (08:45→19:08)
[2019-07-04] MEDS: ENOXAPARIN 40 MG/0.4 ML SQ SCH (09:00)
[2019-07-04] MEDS ORDERED: ALBUTEROL/IPRATROPIUM 2.5MG/0.5MG, 3 ML NPPB PRN (09:00)
[2019-07-04 12:03] VITALS: BP 134/71
[2019-07-04 19:36] VITALS: BP 123/61
[2019-07-04] MEDS: ATORVASTATIN 40 MG TABLET PO SCH (21:46)
[2019-07-04] MEDS: MONTELUKAST 10 MG TABLET PO SCH (21:46)
[2019-07-05 01:19] VITALS: BP 118/64
[2019-07-05] MEDS: methylPREDNISolone SOD SUCC 125 MG/2 ML IVPush SCH ×4 (03:23→20:35)
[2019-07-05 05:19] VITALS: BP 123/64
[2019-07-05] MEDS: ASPIRIN 325 MG TABLET EC PO SCH (05:23)
[2019-07-05] MEDS: CARVEDILOL 3.125 MG TABLET PO SCH ×2 (05:23→17:39)
[2019-07-05 05:58] LABS: BASOPHILS # (AUTO) 0.01 x10^3/uL (0-0.1); BASOPHILS % (AUTO) 0 % (0-1); EOSINOPHILS % (AUTO) 0 % (1-7); LYMPHOCYTES # (AUTO) 0.54 x10^3/uL (1-3.4); LYMPHOCYTES % (AUTO) 3 % (22-44); MD NO; MEAN CORPUSCULAR HEMOGLOBIN 30.1 pg (27.5-34.5); MEAN CORPUSCULAR VOLUME 91.2 fL (81-97); MEAN PLATELET VOLUME 7.9 fL (7.4-10.4); MONOCYTES # (AUTO) 0.56 x10^3/uL (0.2-0.8); MONOCYTES % (AUTO) 4 % (2-9); NEUTROPHILS # (AUTO) 15.04 x10^3/uL (1.8-6.8); NEUTROPHILS % (AUTO) 93 % (42-75); PLATELET COUNT 257 x10^3/uL (130-400); RED BLOOD COUNT 3.96 x10^6/uL (4.38-5.82); RED CELL DISTRIBUTION WIDTH 13.9 % (9.4-14.8)
[2019-07-05 06:16] LABS: ALANINE AMINOTRANSFERASE 13 U/L (12-78); ALBUMIN 3.3 g/dL (3.4-5.0); ANION GAP 6 mmol/L (5-15); CALCIUM 8.9 mg/dL (8.5-10.1); CHLORIDE 106 mmol/L (98-107); CREATININE 1.22 mg/dL (0.7-1.3)
[2019-07-05 06:18] LABS: ALKALINE PHOSPHATASE 82 U/L (45-117); BILIRUBIN,TOTAL 0.4 mg/dL (0.2-1.0); TOTAL PROTEIN 6.7 g/dL (6.4-8.2)
[2019-07-05 07:51] VITALS: BP 137/75
[2019-07-05] MEDS: ALBUTEROL/IPRATROPIUM 2.5MG/0.5MG, 3 ML NPPB SCH ×4 (08:06→21:00)
[2019-07-05] MEDS: DOXYCYCLINE 100MG TABLET PO SCH ×2 (09:12→20:35)
[2019-07-05] MEDS: LOSARTAN 50MG TABLET PO SCH (09:12)
[2019-07-05] MEDS: ESCITALOPRAM 10MG TABLET PO SCH (09:12)
[2019-07-05] MEDS: POTASSIUM CHLORIDE 20 MEQ TAB.ER.PRT PO SCH ×2 (09:12→15:51)
[2019-07-05] MEDS: FUROSEMIDE 40 MG/4 ML IV SCH ×2 (09:12→15:51)
[2019-07-05] MEDS: ENOXAPARIN 40 MG/0.4 ML SQ SCH (09:13)
[2019-07-05] MEDS: ISOSORBIDE DINITRATE 10 MG TABLET PO SCH ×3 (09:13→20:36)
[2019-07-05] MEDS: OMEPRAZOLE 20 MG CAPSULE.DR PO SCH (09:13)
[2019-07-05 09:46] VITALS: BP 125/61
[2019-07-05] MEDS: GUAIFENESIN 200 MG TABLET PO SCH ×3 (12:08→20:35)
[2019-07-05 13:56] VITALS: BP 129/71
[2019-07-05 18:58] VITALS: BP 130/66
[2019-07-05] MEDS: ATORVASTATIN 40 MG TABLET PO SCH (20:35)
[2019-07-05] MEDS: MONTELUKAST 10 MG TABLET PO SCH (20:35)
[2019-07-05] MEDS: POLYETHYLENE GLYCOL 17 GM PACKET PO PRN (20:36)
[2019-07-06 03:44] VITALS: BP 145/74
[2019-07-06] MEDS: methylPREDNISolone SOD SUCC 125 MG/2 ML IVPush SCH ×3 (03:47→20:56)
[2019-07-06] MEDS: ALBUTEROL/IPRATROPIUM 2.5MG/0.5MG, 3 ML NPPB SCH ×4 (06:00→19:29)
[2019-07-06 06:05] VITALS: BP 157/81
[2019-07-06] MEDS: GUAIFENESIN 200 MG TABLET PO SCH ×4 (06:14→20:56)
[2019-07-06] MEDS: ASPIRIN 325 MG TABLET EC PO SCH (06:15)
[2019-07-06] MEDS: CARVEDILOL 3.125 MG TABLET PO SCH ×2 (06:15→17:01)
[2019-07-06 07:14] LABS: BASOPHILS % (AUTO) 0 % (0-1); EOSINOPHILS % (AUTO) 0 % (1-7); LYMPHOCYTES # (AUTO) 0.56 x10^3/uL (1-3.4); LYMPHOCYTES % (AUTO) 4 % (22-44); MD NO; MEAN CORPUSCULAR HEMOGLOBIN 29.6 pg (27.5-34.5); MEAN CORPUSCULAR HGB CONC 32.2 g/dL (33.2-36.2); MEAN CORPUSCULAR VOLUME 91.9 fL (81-97); MEAN PLATELET VOLUME 7.8 fL (7.4-10.4); MONOCYTES # (AUTO) 0.73 x10^3/uL (0.2-0.8); MONOCYTES % (AUTO) 6 % (2-9); NEUTROPHILS # (AUTO) 11.97 x10^3/uL (1.8-6.8); NEUTROPHILS % (AUTO) 90 % (42-75); PLATELET COUNT 252 x10^3/uL (130-400); RED BLOOD COUNT 4.02 x10^6/uL (4.38-5.82); RED CELL DISTRIBUTION WIDTH 14.1 % (9.4-14.8)
[2019-07-06 07:20] LABS: ALBUMIN 3.3 g/dL (3.4-5.0)
[2019-07-06 07:25] LABS: ALANINE AMINOTRANSFERASE 17 U/L (12-78); ALKALINE PHOSPHATASE 73 U/L (45-117); BILIRUBIN,TOTAL 0.5 mg/dL (0.2-1.0); CREATININE 1.14 mg/dL (0.7-1.3); TOTAL PROTEIN 6.5 g/dL (6.4-8.2)
[2019-07-06 07:53] LABS: ANION GAP 5 mmol/L (5-15); CHLORIDE 106 mmol/L (98-107)
[2019-07-06] MEDS: FUROSEMIDE 40 MG/4 ML IV SCH ×2 (07:59→17:00)
[2019-07-06] MEDS: ENOXAPARIN 40 MG/0.4 ML SQ SCH (07:59)
[2019-07-06] MEDS: DOXYCYCLINE 100MG TABLET PO SCH ×2 (08:00→20:56)
[2019-07-06] MEDS: OMEPRAZOLE 20 MG CAPSULE.DR PO SCH (08:00)
[2019-07-06] MEDS: POTASSIUM CHLORIDE 20 MEQ TAB.ER.PRT PO SCH ×2 (08:00→17:01)
[2019-07-06] MEDS: ESCITALOPRAM 10MG TABLET PO SCH (08:00)
[2019-07-06] MEDS: LOSARTAN 50MG TABLET PO SCH (08:00)
[2019-07-06] MEDS: ISOSORBIDE DINITRATE 10 MG TABLET PO SCH ×3 (08:00→20:56)
[2019-07-06 13:09] VITALS: BP 145/68
[2019-07-06] MEDS: POLYETHYLENE GLYCOL 17 GM PACKET PO PRN (18:29)
[2019-07-06 19:00] VITALS: BP 159/68
[2019-07-06] MEDS: MONTELUKAST 10 MG TABLET PO SCH (20:56)
[2019-07-06] MEDS: ATORVASTATIN 40 MG TABLET PO SCH (20:56)
[2019-07-07 01:50] VITALS: BP 156/79
[2019-07-07 05:16] LABS: BASOPHILS % (AUTO) 0 % (0-1); EOSINOPHILS # (AUTO) 0.03 x10^3/uL (0-0.4); EOSINOPHILS % (AUTO) 0 % (1-7); LYMPHOCYTES # (AUTO) 0.48 x10^3/uL (1-3.4); LYMPHOCYTES % (AUTO) 4 % (22-44); MD NO; MEAN CORPUSCULAR HGB CONC 32.7 g/dL (33.2-36.2); MEAN CORPUSCULAR VOLUME 91.7 fL (81-97); MEAN PLATELET VOLUME 8.4 fL (7.4-10.4); MONOCYTES # (AUTO) 0.87 x10^3/uL (0.2-0.8); MONOCYTES % (AUTO) 8 % (2-9); NEUTROPHILS % (AUTO) 88 % (42-75); PLATELET COUNT 241 x10^3/uL (130-400); RED BLOOD COUNT 4.09 x10^6/uL (4.38-5.82); RED CELL DISTRIBUTION WIDTH 13.8 % (9.4-14.8)
[2019-07-07 05:18] LABS: ALANINE AMINOTRANSFERASE 19 U/L (12-78); ALBUMIN 3.3 g/dL (3.4-5.0); ANION GAP 3 mmol/L (5-15); CALCIUM 8.8 mg/dL (8.5-10.1); CHLORIDE 107 mmol/L (98-107)
[2019-07-07 05:21] LABS: ALKALINE PHOSPHATASE 80 U/L (45-117); BILIRUBIN,TOTAL 0.7 mg/dL (0.2-1.0); CREATININE 1.29 mg/dL (0.7-1.3); TOTAL PROTEIN 6.5 g/dL (6.4-8.2)
[2019-07-07] MEDS: GUAIFENESIN 200 MG TABLET PO SCH ×3 (05:22→15:57)
[2019-07-07] MEDS: CARVEDILOL 3.125 MG TABLET PO SCH (05:22)
[2019-07-07] MEDS: ASPIRIN 325 MG TABLET EC PO SCH (05:22)
[2019-07-07 05:23] VITALS: BP 150/85
[2019-07-07] MEDS: ALBUTEROL/IPRATROPIUM 2.5MG/0.5MG, 3 ML NPPB SCH ×3 (07:04→14:35)
[2019-07-07] MEDS: methylPREDNISolone SOD SUCC 125 MG/2 ML IVPush SCH (07:57)
[2019-07-07] MEDS: ENOXAPARIN 40 MG/0.4 ML SQ SCH (07:57)
[2019-07-07] MEDS: DOXYCYCLINE 100MG TABLET PO SCH (07:58)
[2019-07-07] MEDS: OMEPRAZOLE 20 MG CAPSULE.DR PO SCH (07:58)
[2019-07-07] MEDS: ESCITALOPRAM 10MG TABLET PO SCH (07:58)
[2019-07-07] MEDS: POTASSIUM CHLORIDE 20 MEQ TAB.ER.PRT PO SCH ×2 (07:58→15:57)
[2019-07-07] MEDS: ISOSORBIDE DINITRATE 10 MG TABLET PO SCH ×2 (07:58→15:57)
[2019-07-07] MEDS: FUROSEMIDE 40 MG/4 ML IV SCH (07:58)
[2019-07-07] MEDS: LOSARTAN 50MG TABLET PO SCH (07:58)
[2019-07-07 08:37] VITALS: BP 165/77
[2019-07-07] MEDS ORDERED: POTASSIUM CHLORIDE 20 MEQ TAB.ER.PRT PO ONE (11:30)
[2019-07-07 13:10] VITALS: BP 154/73
[2019-07-07] MEDS ORDERED: PRED20TA PO (14:57)
[2019-07-07] MEDS ORDERED: POTA20TA6 PO (14:57)
[2019-07-07] MEDS ORDERED: FURO40TA6 PO (14:57)
[2019-07-07] MEDS ORDERED: APIX5TAB PO (14:57)
[2019-07-07] MEDS ORDERED: DOXY100T PO (14:57)
[2019-07-07] MEDS ORDERED: GUAI200T37 PO (14:57)
[2019-07-07] MEDS ORDERED: FUROSEMIDE 40 MG TABLET PO SCH (17:00)
[2019-07-07] MEDS ORDERED: CARVEDILOL 6.25 MG TABLET PO SCH (18:00)
[2019-07-07] MEDS ORDERED: APIXABAN 5 MG TABLET PO SCH (21:00)
== END 2019-07-07 17:15 | disposition home or self-care (01) | DRG 190 ==
LOC: ED 03:51 → EDIP 06:52 → 4WST 10:44 → DCLOUNGE 07-07 16:49
PROVIDERS: ADMIT Internal Medicine; ATTEND Internal Medicine
DX: J44.0 Chronic obstructive pulmonary disease with (acute) lower respiratory infection (principal); I50.33 Acute on chronic diastolic (congestive) heart failure; E87.3 Alkalosis; I47.2 Ventricular tachycardia; I48.92 Unspecified atrial flutter; J96.11 Chronic respiratory failure with hypoxia; I11.0 Hypertensive heart disease with heart failure; J44.1 Chronic obstructive pulmonary disease with (acute) exacerbation; D64.9 Anemia, unspecified; E66.01 Morbid (severe) obesity due to excess calories; E78.5 Hyperlipidemia, unspecified; E87.6 Hypokalemia; I25.10 Atherosclerotic heart disease of native coronary artery without angina pectoris; I80.9 Phlebitis and thrombophlebitis of unspecified site; J20.9 Acute bronchitis, unspecified; Z80.51 Family history of malignant neoplasm of kidney; Z82.5 Family history of asthma and other chronic lower respiratory diseases; Z87.891 Personal history of nicotine dependence; Z99.81 Dependence on supplemental oxygen
CPT/HCPCS: 36415; 36600; 96372; 96374; 96375; 99285; J7620; 71045; 80053; 80061; 81003; 82803; 83036; 83605; 83735; 83880; 84439; 84443; 84484; 85025; 87040; 93005; 93306; 94640; G0378; J1650; J1940; J2930

== ENCOUNTER → 2019-08-03 | Outpatient (CLI) | payer OTHER ==
[~2019-08-03] MED LIST changes: +APIX5TAB PO; +FURO40TA6 PO; +MONT10TA11 PO; -MONT10TA9 PO; +POTA20TA6 PO
[2019-08-03 07:26] LABS: MEAN CORPUSCULAR HEMOGLOBIN 30.6 pg (27.5-34.5); MEAN CORPUSCULAR HGB CONC 32.8 g/dL (33.2-36.2); MEAN CORPUSCULAR VOLUME 93.3 fL (81-97); MEAN PLATELET VOLUME 7.6 fL (7.4-10.4); PLATELET COUNT 261 x10^3/uL (130-400); RED BLOOD COUNT 3.99 x10^6/uL (4.38-5.82); RED CELL DISTRIBUTION WIDTH 15.1 % (9.4-14.8)
[2019-08-03 07:31] LABS: ALBUMIN 3.4 g/dL (3.4-5.0); ANION GAP 5 mmol/L (5-15); CALCIUM 8.8 mg/dL (8.5-10.1); CHLORIDE 105 mmol/L (98-107); CHOLESTEROL, TOTAL 171 mg/dL (140-239); TRIGLYCERIDES 144 mg/dL (50-200); VLDL CHOLESTEROL 29 mg/dL (0-25)
[2019-08-03 07:48] LABS: MD YES
[2019-08-03 07:49] LABS: BANDS%(MANUAL) 3 % (0-7); BASOS% (MANUAL) 1 % (0-1); EOS% (MANUAL) 3 % (1-7); LYMPH#(MANUAL) 1.62 x10^3/uL (1-3.4); LYMPHS% (MANUAL) 16 % (22-44); METAMYELOCYTES% (MANUAL) 3 % (0-1); MONOS% (MANUAL) 3 % (2-9); MYELOCYTES% (MANUAL) 2 % (0-0); REACTIVE LYMPHS % (MANUAL) 1 % (0-0); SEG#(MANUAL) 6.87 x10^3/uL (1.8-6.8); SEGS% (MANUAL) 68 % (42-75)
[2019-08-03 07:50] LABS: <PLATELET ESTIMATE> ADEQUATE; <PLT MORPHOLOGY> NORMAL PLT MORPH; ANISOCYTOSIS 1+; POLYCHROMASIA 1+
[2019-08-03 07:57] LABS: % IRON SATURATION 30 % (20-55); ALANINE AMINOTRANSFERASE 24 U/L (12-78); ALKALINE PHOSPHATASE 81 U/L (45-117); BILIRUBIN,TOTAL 0.6 mg/dL (0.2-1.0); CHOL/HDL RATIO 2.8; CREATININE 1.15 mg/dL (0.7-1.3); FOLATE LEVEL 11.5 ng/mL (3.1-17.5); HDL CHOL % 36 % (26-37); HDL CHOLESTEROL (DIRECT) 61 mg/dL (40-60); IRON LEVEL 100 mcg/dL (65-175); LDL CHOLESTEROL,CALCULATED 81 mg/dL (54-169); LDL/HDL RATIO 1.3 (0.5-3.0); TOTAL IRON BINDING CAPACITY 330 mcg/dL (250-450); TOTAL PROTEIN 6.5 g/dL (6.4-8.2)
== END | disposition home or self-care (01) ==
LOC: LAB 07:05
PROVIDERS: ATTEND Registered Nurse
DX: I11.0 Hypertensive heart disease with heart failure (principal); I50.32 Chronic diastolic (congestive) heart failure; D64.9 Anemia, unspecified; R73.01 Impaired fasting glucose
CPT/HCPCS: 36415; 80053; 80061; 82607; 82746; 83036; 83540; 83550; 83880; 85025

== ENCOUNTER 2019-08-14 08:23 | Inpatient (IN) | payer OTHER ==
[~2019-08-14] VITALS: Ht 170.2 cm; Wt 118.9 kg
--- NOTE | 2019-08-14 08:44 | NUR ---
FIRST CONTACT WITH PT. PT C/O: SOB, SENT BY DATA [employer]SULTANT [facility] THIS MORNING. PT DENIES CP. PT WEARS 3L OXYGEN VIA NC AT ALL TIMES. PT'S AOX4. RESPS EVEN AND UNLABORED. ALL MONITORS IN PLACE. CALL LIGHT WITHIN REACH. PA AT BEDSIDE TO EVALUATE AT THIS TIME.
[2019-08-14 08:49] LABS: MEAN CORPUSCULAR HEMOGLOBIN 30.3 pg (27.5-34.5); MEAN CORPUSCULAR HGB CONC 32.6 g/dL (33.2-36.2); MEAN CORPUSCULAR VOLUME 92.9 fL (81-97); MEAN PLATELET VOLUME 7.8 fL (7.4-10.4); PLATELET COUNT 244 x10^3/uL (130-400); RED BLOOD COUNT 4.24 x10^6/uL (4.38-5.82); RED CELL DISTRIBUTION WIDTH 15.2 % (9.4-14.8)
[2019-08-14 08:59] LABS: ALBUMIN 3.7 g/dL (3.4-5.0); ANION GAP 7 mmol/L (5-15); CALCIUM 8.5 mg/dL (8.5-10.1); CHLORIDE 104 mmol/L (98-107)
[2019-08-14 09:04] LABS: ALANINE AMINOTRANSFERASE 24 U/L (12-78); ALKALINE PHOSPHATASE 86 U/L (45-117); BILIRUBIN,TOTAL 0.6 mg/dL (0.2-1.0); CREATININE 1.29 mg/dL (0.7-1.3); TOTAL PROTEIN 6.9 g/dL (6.4-8.2); TROPONIN I < 0.015 ng/mL (0.000-0.045)
[2019-08-14 09:07] LABS: MD YES
[2019-08-14 09:09] LABS: <PLATELET ESTIMATE> ADEQUATE; <PLT MORPHOLOGY> NORMAL PLT MORPH; ANISOCYTOSIS 1+; BAND#(MANUAL) 0.14 x10^3/uL; BANDS%(MANUAL) 1 % (0-7); EOS#(MANUAL) 0.14 x10^3/uL (0.0-0.4); EOS% (MANUAL) 1 % (1-7); LYMPHS% (MANUAL) 9 % (22-44); METAMYELOCYTES# (MANUAL) 0.58 x10^3/uL (0-0); METAMYELOCYTES% (MANUAL) 4 % (0-1); MONOS#(MANUAL) 1.73 x10^3/uL (0.3-2.7); MONOS% (MANUAL) 12 % (2-9); MYELOCYTES# (MANUAL) 0.14 x10^3/uL (0-0); MYELOCYTES% (MANUAL) 1 % (0-0); POLYCHROMASIA 1+; SEG#(MANUAL) 10.37 x10^3/uL (1.8-6.8); SEGS% (MANUAL) 72 % (42-75)
--- NOTE | 2019-08-14 09:35 | NUR ---
pt resting in gurney. pt's aox4. resps even and unlabored. piv est on L ac with no complications. pt tolerated well.
--- NOTE | 2019-08-14 10:16 | NUR ---
pt to ct at this time.
[2019-08-14] MEDS ORDERED: OMNIPAQUE 350 MG/ML, 100ML BOTTLE ONE (10:43)
--- NOTE | 2019-08-14 11:30 | NUR ---
PT RESTING IN [facility]. PT'S AOX4. RESPS EVEN AND UNLABORED.
--- NOTE | 2019-08-14 12:07 | NUR ---
hospitalist at bedside at this time.
[2019-08-14] MEDS ORDERED: FUROSEMIDE 20 MG/2 ML ONE (12:11)
[2019-08-14] MEDS ORDERED: ONDANSETRON ODT 4 MG PO PRN (12:30)
[2019-08-14] MEDS ORDERED: hydrALAzine 20 MG/ML, 1ML IVPush PRN (12:30)
[2019-08-14] MEDS ORDERED: morphine SULFATE 10 MG/ML, 1ML IVPush PRN (12:30)
[2019-08-14] MEDS ORDERED: ACETAMINOPHEN 325 MG TABLET PO PRN (12:30)
[2019-08-14] MEDS ORDERED: ONDANSETRON 2MG/ML, 2ML IVPush PRN (12:30)
[2019-08-14] MEDS ORDERED: methylPREDNISolone SOD SUCC 125 MG/2 ML ONE (12:31)
[2019-08-14] MEDS: methylPREDNISolone SOD SUCC 125 MG/2 ML IVPush SCH ×2 (12:35→20:17)
--- NOTE | 2019-08-14 12:39 | NUR ---
PT MEDICATED WITH LASIX AND SOLUMEDROL. LUNCH TRAY ORERED. MED REC FINISHED.
[2019-08-14] MEDS ORDERED: FUROSEMIDE 20 MG/2 ML IV ONE (13:00)
--- NOTE | 2019-08-14 13:34 | NUR ---
PT RESTING IN [facility]. RESPS EVEN AND UNLABORED. ALL MONITORS IN PLACE. CALL LIGHT WITHIN REACH.
[2019-08-14] MEDS ORDERED: ALBUTEROL/IPRATROPIUM 2.5MG/0.5MG, 3 ML ONE (14:05)
--- NOTE | 2019-08-14 14:54 | NUR ---
HOSPITAL BED REQUESTING AT THIS TIME.
[2019-08-14] MEDS: ALBUTEROL/IPRATROPIUM 2.5MG/0.5MG, 3 ML NPPB SCH ×2 (15:00→19:39)
--- NOTE | 2019-08-14 15:06 | NUR ---
HOSPITAL BED IN ROOM. PT RESTING IN HOSPITAL BED. PT'S AOX4. RESPS EVEN AND UNLABORED.
--- NOTE | 2019-08-14 16:05 | NUR ---
medications ordered from pharmacy at this time.
[2019-08-14] MEDS: ISOSORBIDE DINITRATE 10 MG TABLET PO SCH ×2 (16:34→20:25)
[2019-08-14] MEDS: GUAIFENESIN 200 MG TABLET PO SCH ×2 (16:35→20:25)
--- NOTE | 2019-08-14 16:35 | NUR ---
PT MEDICATED PER EMAR. PT TOLERATED WELL. PT'S AOX4. RESPS EVEN AND UNLABORED.
--- NOTE | 2019-08-14 16:41 | NUR ---
diet tray ordered at this time.
--- NOTE | 2019-08-14 17:12 | NUR ---
MEAL TRAY PROVIDED AT THIS TIME.
[2019-08-14] MEDS ORDERED: CARVEDILOL 3.125 MG TABLET ONE (17:54)
[2019-08-14] MEDS: CARVEDILOL 3.125 MG TABLET PO SCH (17:58)
--- NOTE | 2019-08-14 17:58 | NUR ---
PT MEDICATED PER EMAR. PT TOLERATED WELL.
--- NOTE | 2019-08-14 18:13 | NUR ---
report given to lorena azevedo. all questions answered.
[2019-08-14] MEDS ORDERED: ALBUTEROL SULFATE 2.5 MG/3 ML NPPB PRN (19:00)
[2019-08-14] MEDS ORDERED: ALBUTEROL SULFATE 2.5 MG/3 ML HHN PRN (19:00)
[2019-08-14] MEDS: BUDESONIDE 0.5 MG/2 ML INHA INH SCH (19:39)
[2019-08-14 20:12] VITALS: BP 165/71
[2019-08-14] MEDS: APIXABAN 5 MG TABLET PO SCH (20:17)
[2019-08-14] MEDS: ATORVASTATIN 40 MG TABLET PO SCH (20:17)
[2019-08-14] MEDS: FUROSEMIDE 40 MG TABLET PO SCH (20:24)
[2019-08-14 20:50] VITALS: BP 166/82
[2019-08-15 01:45] VITALS: BP 146/77
[2019-08-15] MEDS: methylPREDNISolone SOD SUCC 125 MG/2 ML IVPush SCH ×3 (04:05→20:25)
[2019-08-15] MEDS: PANTOPROZOLE 40MG TABLET PO SCH (05:24)
[2019-08-15] MEDS: GUAIFENESIN 200 MG TABLET PO SCH ×4 (05:24→20:26)
[2019-08-15] MEDS: CARVEDILOL 3.125 MG TABLET PO SCH ×2 (05:24→17:01)
[2019-08-15 05:35] LABS: BASOPHILS # (AUTO) 0.02 x10^3/uL (0-0.1); BASOPHILS % (AUTO) 0 % (0-1); EOSINOPHILS % (AUTO) 0 % (1-7); LYMPHOCYTES # (AUTO) 0.68 x10^3/uL (1-3.4); LYMPHOCYTES % (AUTO) 6 % (22-44); MD NO; MEAN CORPUSCULAR HEMOGLOBIN 30.1 pg (27.5-34.5); MEAN CORPUSCULAR HGB CONC 32.8 g/dL (33.2-36.2); MEAN PLATELET VOLUME 8.4 fL (7.4-10.4); MONOCYTES # (AUTO) 0.22 x10^3/uL (0.2-0.8); MONOCYTES % (AUTO) 2 % (2-9); NEUTROPHILS # (AUTO) 11.25 x10^3/uL (1.8-6.8); NEUTROPHILS % (AUTO) 92 % (42-75); PLATELET COUNT 209 x10^3/uL (130-400); RED BLOOD COUNT 4.19 x10^6/uL (4.38-5.82); RED CELL DISTRIBUTION WIDTH 15.3 % (9.4-14.8)
[2019-08-15 05:49] LABS: ANION GAP 7 mmol/L (5-15); CALCIUM 9.1 mg/dL (8.5-10.1); CHLORIDE 102 mmol/L (98-107); CREATININE 1.25 mg/dL (0.7-1.3)
[2019-08-15] MEDS: BUDESONIDE 0.5 MG/2 ML INHA INH SCH ×2 (06:46→19:29)
[2019-08-15] MEDS: ALBUTEROL/IPRATROPIUM 2.5MG/0.5MG, 3 ML NPPB SCH ×4 (06:46→19:29)
[2019-08-15 09:22] VITALS: BP 157/71
[2019-08-15] MEDS: ISOSORBIDE DINITRATE 10 MG TABLET PO SCH ×3 (09:34→20:26)
[2019-08-15] MEDS: FUROSEMIDE 40 MG TABLET PO SCH ×2 (09:35→17:01)
[2019-08-15] MEDS: ESCITALOPRAM 10MG TABLET PO SCH (09:35)
[2019-08-15] MEDS: APIXABAN 5 MG TABLET PO SCH ×2 (09:35→20:26)
[2019-08-15] MEDS: AZITHROMYCIN 500 MG TABLET PO SCH (11:55)
[2019-08-15 14:15] VITALS: BP 146/71
[2019-08-15 19:02] VITALS: BP 143/76
[2019-08-15] MEDS: ATORVASTATIN 40 MG TABLET PO SCH (20:26)
[2019-08-16 01:04] VITALS: BP 131/69
[2019-08-16] MEDS: CARVEDILOL 3.125 MG TABLET PO SCH ×2 (05:03→18:05)
[2019-08-16] MEDS: methylPREDNISolone SOD SUCC 125 MG/2 ML IVPush SCH (05:03)
[2019-08-16] MEDS: GUAIFENESIN 200 MG TABLET PO SCH ×4 (05:04→21:01)
[2019-08-16] MEDS: PANTOPROZOLE 40MG TABLET PO SCH (05:04)
[2019-08-16 06:33] VITALS: BP 159/83
[2019-08-16] MEDS: BUDESONIDE 0.5 MG/2 ML INHA INH SCH ×2 (07:12→20:13)
[2019-08-16] MEDS: ALBUTEROL/IPRATROPIUM 2.5MG/0.5MG, 3 ML NPPB SCH ×4 (07:12→20:13)
[2019-08-16] MEDS ORDERED: FUROSEMIDE 40 MG/4 ML IV SCH (07:30)
[2019-08-16] MEDS: APIXABAN 5 MG TABLET PO SCH ×2 (08:39→21:02)
[2019-08-16] MEDS: ISOSORBIDE DINITRATE 10 MG TABLET PO SCH ×3 (08:39→21:01)
[2019-08-16] MEDS: ESCITALOPRAM 10MG TABLET PO SCH (08:40)
[2019-08-16] MEDS: AZITHROMYCIN 500 MG TABLET PO SCH (08:40)
[2019-08-16 10:10] LABS: ANION GAP 11 mmol/L (5-15); CALCIUM 8.7 mg/dL (8.5-10.1); CHLORIDE 102 mmol/L (98-107); CREATININE 1.59 mg/dL (0.7-1.3)
[2019-08-16 13:18] VITALS: BP 101/61
[2019-08-16 14:26] VITALS: BP 157/80
[2019-08-16 18:40] VITALS: BP 142/70
[2019-08-16] MEDS: ATORVASTATIN 40 MG TABLET PO SCH (21:01)
[2019-08-16 21:02] VITALS: BP 158/81
[2019-08-17 01:45] VITALS: BP 162/82
[2019-08-17] MEDS: CARVEDILOL 3.125 MG TABLET PO SCH (05:58)
[2019-08-17] MEDS: PANTOPROZOLE 40MG TABLET PO SCH (05:58)
[2019-08-17] MEDS: GUAIFENESIN 200 MG TABLET PO SCH ×2 (05:58→11:08)
[2019-08-17] MEDS: BUDESONIDE 0.5 MG/2 ML INHA INH SCH (07:36)
[2019-08-17] MEDS: ALBUTEROL/IPRATROPIUM 2.5MG/0.5MG, 3 ML NPPB SCH ×3 (07:36→13:47)
[2019-08-17 08:36] VITALS: BP 159/72
[2019-08-17] MEDS: ISOSORBIDE DINITRATE 10 MG TABLET PO SCH (08:42)
[2019-08-17] MEDS: AZITHROMYCIN 500 MG TABLET PO SCH (08:42)
[2019-08-17] MEDS: ESCITALOPRAM 10MG TABLET PO SCH (08:42)
[2019-08-17] MEDS: APIXABAN 5 MG TABLET PO SCH (08:42)
[2019-08-17] MEDS ORDERED: AMLODIPINE 5 MG TABLET PO SCH (09:00)
[2019-08-17] MEDS ORDERED: methylPREDNISolone SOD SUCC 125 MG/2 ML IVPush SCH (09:00)
[2019-08-17] MEDS ORDERED: FUROSEMIDE 40 MG/4 ML IV SCH (09:00)
[2019-08-17 09:46] LABS: ANION GAP 7 mmol/L (5-15); CALCIUM 8.6 mg/dL (8.5-10.1); CHLORIDE 103 mmol/L (98-107); CREATININE 1.34 mg/dL (0.7-1.3)
[2019-08-17 12:18] VITALS: BP 171/85
[2019-08-17] MEDS ORDERED: METH4TAB2 PO (12:47)
[2019-08-17] MEDS ORDERED: AZIT500T10 PO (12:47)
[2019-08-17] MEDS ORDERED: FURO40TA6 PO (12:47)
== END 2019-08-17 14:13 | disposition home health service (06) | DRG 682 ==
LOC: ED 09:52 → SUATTDRO 12:13 → EDIP 12:59 → 4WST 18:29 → DCLOUNGE 08-17 14:04
PROVIDERS: ADMIT Hospitalist; ATTEND Hospitalist
DX: N17.9 Acute kidney failure, unspecified (principal); J96.21 Acute and chronic respiratory failure with hypoxia; I50.33 Acute on chronic diastolic (congestive) heart failure; J44.1 Chronic obstructive pulmonary disease with (acute) exacerbation; D68.69 Other thrombophilia; Z68.41 Body mass index [BMI] 40.0-44.9, adult; I11.0 Hypertensive heart disease with heart failure; E78.5 Hyperlipidemia, unspecified; D72.829 Elevated white blood cell count, unspecified; I25.10 Atherosclerotic heart disease of native coronary artery without angina pectoris; R73.03 Prediabetes; Z79.01 Long term (current) use of anticoagulants; Z79.51 Long term (current) use of inhaled steroids; Z82.5 Family history of asthma and other chronic lower respiratory diseases; Z87.891 Personal history of nicotine dependence; Z99.81 Dependence on supplemental oxygen; E66.9 Obesity, unspecified
CPT/HCPCS: 36415; J7626; 71045; 71275; 80048; 80053; 83880; 84484; 85025; 93005; 94640; G0378; J1940; Q9967; J2930

== ENCOUNTER 2019-08-28 07:17 | Inpatient (IN) | payer OTHER, MEDICARE ==
[~2019-08-28] VITALS: Ht 170.2 cm; Wt 114.0 kg
[~2019-08-28 07:17] MED LIST changes: +AZIT500T10 PO
[2019-08-28] MEDS ORDERED: ASPI-496 PO (07:55)
[2019-08-28] MEDS ORDERED: POTA10TA5 PO (07:55)
[2019-08-28] MEDS ORDERED: PRED20TA PO (07:55)
[2019-08-28] MEDS ORDERED: SODIUM CHLORIDE FLUSH 10ML SYR IVF ONE (08:00)
[2019-08-28 08:19] LABS: MEAN CORPUSCULAR HEMOGLOBIN 30.2 pg (27.5-34.5); MEAN CORPUSCULAR HGB CONC 32.4 g/dL (33.2-36.2); MEAN CORPUSCULAR VOLUME 93.2 fL (81-97); MEAN PLATELET VOLUME 7.9 fL (7.4-10.4); PLATELET COUNT 182 x10^3/uL (130-400); RED BLOOD COUNT 4.42 x10^6/uL (4.38-5.82); RED CELL DISTRIBUTION WIDTH 15.2 % (9.4-14.8)
[2019-08-28 08:27] LABS: ALBUMIN 3.3 g/dL (3.4-5.0); ANION GAP 1 mmol/L (5-15); CALCIUM 8.1 mg/dL (8.5-10.1); CHLORIDE 106 mmol/L (98-107); CREATININE 1.28 mg/dL (0.7-1.3)
[2019-08-28 08:31] LABS: TROPONIN I < 0.015 ng/mL (0.000-0.045)
--- NOTE | 2019-08-28 08:39 | NUR ---
PT IN HOSPITAL GOWN. CXR DONE, LABS HAVE BEEN DRAWN, EKG DONE. PT BREATHING WITH LESS EFFORT AT THIS TIME. PT SATING 96% ON 3L PER N/C. PT AWAITING RT TX. PT HAS BEEN MEDICATED WITH ORDERED STEROID. CALL LIGHT WITHIN REACH. PT ABLE TO AMBULATE TO THE BATHROOM STEADILY ON HIS OWN.
[2019-08-28] MEDS ORDERED: ALBUTEROL/IPRATROPIUM 2.5MG/0.5MG, 3 ML ONE (08:45)
[2019-08-28 08:47] LABS: BASOPHILS # (AUTO) 0.09 x10^3/uL (0-0.1); BASOPHILS % (AUTO) 1 % (0-1); EOSINOPHILS # (AUTO) 0.13 x10^3/uL (0-0.4); EOSINOPHILS % (AUTO) 1 % (1-7); LYMPHOCYTES # (AUTO) 1.06 x10^3/uL (1-3.4); LYMPHOCYTES % (AUTO) 10 % (22-44); MD SCAN; MONOCYTES # (AUTO) 0.74 x10^3/uL (0.2-0.8); MONOCYTES % (AUTO) 7 % (2-9); NEUTROPHILS # (AUTO) 8.64 x10^3/uL (1.8-6.8); NEUTROPHILS % (AUTO) 81 % (42-75)
--- NOTE | 2019-08-28 09:23 | NUR ---
PT RESTING CALMLY IN BED AT THIS TIME. NO STATED NEEDS. PT BREATHING IS UNLABORED AND EVEN. PT IN FOWLERS POSITION. WILL CONTINUE TO MONITOR.
[2019-08-28] MEDS ORDERED: ACETAMINOPHEN 325 MG TABLET PO PRN (10:00)
[2019-08-28] MEDS ORDERED: hydrALAzine 20 MG/ML, 1ML IVPush PRN (10:00)
[2019-08-28] MEDS ORDERED: ONDANSETRON 2MG/ML, 2ML IVPush PRN (10:00)
[2019-08-28] MEDS ORDERED: LABETALOL 5MG/ML, 20ML IVPush PRN (10:00)
[2019-08-28] MEDS ORDERED: PROMETHAZINE 25 MG/ML, 1ML IM PRN (10:00)
--- NOTE | 2019-08-28 10:00 | NUR ---
PT RESTING CALMLY IN BED. HOSPITALIST HAS BEEN TO SEE PT. ORDERED LABS HAVE BEEN DRAWN. REPEAT EKG HAS BEEN DONE ALSO. CALL LIGHT WITHIN REACH.
[2019-08-28] MEDS ORDERED: ALBUTEROL/IPRATROPIUM 2.5MG/0.5MG, 3 ML NPPB SCH (11:00)
--- NOTE | 2019-08-28 11:09 | NUR ---
REPORT GIVEN TO MAIA HICKEY.
[2019-08-28 11:45] VITALS: BP 146/48
[2019-08-28] MEDS: methylPREDNISolone SOD SUCC 125 MG/2 ML IVPush SCH ×3 (12:28→23:36)
[2019-08-28] MEDS: APIXABAN 5 MG TABLET PO SCH ×2 (12:50→21:41)
[2019-08-28] MEDS: FUROSEMIDE 40 MG TABLET PO SCH ×2 (12:50→16:43)
[2019-08-28] MEDS: AZITHROMYCIN 500 MG TABLET PO SCH (12:50)
[2019-08-28] MEDS: LOSARTAN 50MG TABLET PO SCH (12:50)
[2019-08-28] MEDS: PANTOPRAZOLE 40MG TABLET PO SCH (12:50)
[2019-08-28] MEDS: GUAIFENESIN 200 MG TABLET PO SCH ×3 (12:50→21:39)
[2019-08-28] MEDS: ALBUTEROL/IPRATROPIUM 2.5MG/0.5MG, 3 ML NPPB SCH ×2 (14:44→19:54)
[2019-08-28 15:32] LABS: RAPID INFLUENZA A Negative (Negative); RAPID INFLUENZA B Negative (Negative)
[2019-08-28 16:40] VITALS: BP 153/84
[2019-08-28] MEDS: ISOSORBIDE DINITRATE 10 MG TABLET PO SCH ×2 (16:42→21:40)
[2019-08-28 20:15] VITALS: BP 166/84
[2019-08-28] MEDS: ATORVASTATIN 40 MG TABLET PO SCH (21:39)
[2019-08-28] MEDS: MONTELUKAST 10 MG TABLET PO SCH (21:40)
[2019-08-29] MEDS: ALBUTEROL/IPRATROPIUM 2.5MG/0.5MG, 3 ML NPPB SCH ×5 (01:42→19:01)
[2019-08-29 01:50] VITALS: BP 151/75
[2019-08-29 05:21] LABS: BASOPHILS # (AUTO) 0.01 x10^3/uL (0-0.1); BASOPHILS % (AUTO) 0 % (0-1); EOSINOPHILS # (AUTO) 0.01 x10^3/uL (0-0.4); EOSINOPHILS % (AUTO) 0 % (1-7); LYMPHOCYTES # (AUTO) 0.44 x10^3/uL (1-3.4); LYMPHOCYTES % (AUTO) 4 % (22-44); MD NO; MEAN CORPUSCULAR HEMOGLOBIN 30.8 pg (27.5-34.5); MEAN CORPUSCULAR HGB CONC 33.3 g/dL (33.2-36.2); MEAN CORPUSCULAR VOLUME 92.4 fL (81-97); MEAN PLATELET VOLUME 8.2 fL (7.4-10.4); MONOCYTES # (AUTO) 0.24 x10^3/uL (0.2-0.8); MONOCYTES % (AUTO) 2 % (2-9); NEUTROPHILS # (AUTO) 9.41 x10^3/uL (1.8-6.8); NEUTROPHILS % (AUTO) 93 % (42-75); PLATELET COUNT 166 x10^3/uL (130-400); RED BLOOD COUNT 4.21 x10^6/uL (4.38-5.82); RED CELL DISTRIBUTION WIDTH 15.2 % (9.4-14.8)
[2019-08-29 05:36] LABS: ALBUMIN 3.2 g/dL (3.4-5.0); ANION GAP 8 mmol/L (5-15); CALCIUM 8.9 mg/dL (8.5-10.1); CHLORIDE 106 mmol/L (98-107)
[2019-08-29 05:39] LABS: ALANINE AMINOTRANSFERASE 33 U/L (12-78); ALKALINE PHOSPHATASE 88 U/L (45-117); BILIRUBIN,TOTAL 0.3 mg/dL (0.2-1.0); CREATININE 1.52 mg/dL (0.7-1.3); TOTAL PROTEIN 6.6 g/dL (6.4-8.2)
[2019-08-29 05:47] VITALS: BP 150/73
[2019-08-29] MEDS: methylPREDNISolone SOD SUCC 125 MG/2 ML IVPush SCH ×3 (05:49→17:42)
[2019-08-29] MEDS: PANTOPRAZOLE 40MG TABLET PO SCH (05:49)
[2019-08-29] MEDS: GUAIFENESIN 200 MG TABLET PO SCH ×4 (05:49→22:29)
[2019-08-29 06:51] VITALS: BP 141/62
[2019-08-29] MEDS: POTASSIUM CHLORIDE 10 MEQ TABLET.ER PO SCH (09:10)
[2019-08-29] MEDS: ASPIRIN 81 MG TABLET EC PO SCH (09:10)
[2019-08-29] MEDS: AZITHROMYCIN 500 MG TABLET PO SCH (09:10)
[2019-08-29] MEDS: APIXABAN 5 MG TABLET PO SCH ×2 (09:10→20:07)
[2019-08-29] MEDS: FUROSEMIDE 40 MG TABLET PO SCH ×2 (09:10→17:43)
[2019-08-29] MEDS: LOSARTAN 50MG TABLET PO SCH (09:12)
[2019-08-29] MEDS: ISOSORBIDE DINITRATE 10 MG TABLET PO SCH ×3 (09:12→22:30)
[2019-08-29 13:07] VITALS: BP 119/62
[2019-08-29 19:38] VITALS: BP 137/64
[2019-08-29] MEDS: ATORVASTATIN 40 MG TABLET PO SCH (20:07)
[2019-08-29] MEDS: MONTELUKAST 10 MG TABLET PO SCH (20:07)
[2019-08-29 22:28] VITALS: BP 133/70
[2019-08-30] MEDS: methylPREDNISolone SOD SUCC 125 MG/2 ML IVPush SCH ×4 (00:14→18:21)
[2019-08-30 00:16] VITALS: BP 147/77
[2019-08-30 05:48] LABS: ALBUMIN 3.1 g/dL (3.4-5.0); ANION GAP 7 mmol/L (5-15); CALCIUM 8.5 mg/dL (8.5-10.1); CHLORIDE 105 mmol/L (98-107)
[2019-08-30 05:50] LABS: CREATININE 1.37 mg/dL (0.7-1.3)
[2019-08-30 06:03] LABS: BASOPHILS % (AUTO) 0 % (0-1); EOSINOPHILS % (AUTO) 0 % (1-7); LYMPHOCYTES # (AUTO) 0.45 x10^3/uL (1-3.4); LYMPHOCYTES % (AUTO) 3 % (22-44); MD NO; MEAN CORPUSCULAR HEMOGLOBIN 30.4 pg (27.5-34.5); MEAN CORPUSCULAR HGB CONC 32.9 g/dL (33.2-36.2); MEAN CORPUSCULAR VOLUME 92.2 fL (81-97); MEAN PLATELET VOLUME 8.2 fL (7.4-10.4); MONOCYTES # (AUTO) 0.44 x10^3/uL (0.2-0.8); MONOCYTES % (AUTO) 3 % (2-9); NEUTROPHILS # (AUTO) 13.09 x10^3/uL (1.8-6.8); NEUTROPHILS % (AUTO) 94 % (42-75); PLATELET COUNT 157 x10^3/uL (130-400); RED BLOOD COUNT 3.92 x10^6/uL (4.38-5.82); RED CELL DISTRIBUTION WIDTH 15.2 % (9.4-14.8)
[2019-08-30 06:16] VITALS: BP 138/76
[2019-08-30] MEDS: GUAIFENESIN 200 MG TABLET PO SCH ×4 (06:19→22:51)
[2019-08-30] MEDS: PANTOPRAZOLE 40MG TABLET PO SCH (06:19)
[2019-08-30] MEDS: ALBUTEROL/IPRATROPIUM 2.5MG/0.5MG, 3 ML NPPB SCH ×4 (07:16→18:39)
[2019-08-30] MEDS: ISOSORBIDE DINITRATE 10 MG TABLET PO SCH ×3 (08:34→22:51)
[2019-08-30] MEDS: LOSARTAN 50MG TABLET PO SCH (08:35)
[2019-08-30] MEDS: FUROSEMIDE 40 MG TABLET PO SCH ×2 (08:35→18:20)
[2019-08-30] MEDS: POTASSIUM CHLORIDE 10 MEQ TABLET.ER PO SCH (08:35)
[2019-08-30] MEDS: ASPIRIN 81 MG TABLET EC PO SCH (08:35)
[2019-08-30] MEDS: APIXABAN 5 MG TABLET PO SCH ×2 (08:35→20:00)
[2019-08-30] MEDS: AZITHROMYCIN 500 MG TABLET PO SCH (08:35)
[2019-08-30 13:55] VITALS: BP 150/78
[2019-08-30] MEDS ORDERED: SODIUM CHLORIDE 0.9% 1,000ML IVBOLUS ONE (16:00)
[2019-08-30 18:57] VITALS: BP 160/74
[2019-08-30] MEDS: MONTELUKAST 10 MG TABLET PO SCH (20:00)
[2019-08-30] MEDS: ATORVASTATIN 40 MG TABLET PO SCH (20:00)
[2019-08-30 22:49] VITALS: BP 138/65
[2019-08-31] MEDS: methylPREDNISolone SOD SUCC 125 MG/2 ML IVPush SCH ×3 (00:25→11:09)
[2019-08-31 00:34] VITALS: BP 146/62
[2019-08-31] MEDS: ALBUTEROL/IPRATROPIUM 2.5MG/0.5MG, 3 ML NPPB SCH ×3 (04:36→09:20)
[2019-08-31 06:42] VITALS: BP 152/76
[2019-08-31] MEDS: GUAIFENESIN 200 MG TABLET PO SCH ×2 (06:44→11:09)
[2019-08-31] MEDS: PANTOPRAZOLE 40MG TABLET PO SCH (06:44)
[2019-08-31 06:52] LABS: BASOPHILS # (AUTO) 0.01 x10^3/uL (0-0.1); BASOPHILS % (AUTO) 0 % (0-1); EOSINOPHILS # (AUTO) 0.08 x10^3/uL (0-0.4); EOSINOPHILS % (AUTO) 1 % (1-7); LYMPHOCYTES # (AUTO) 0.37 x10^3/uL (1-3.4); LYMPHOCYTES % (AUTO) 3 % (22-44); MD NO; MEAN CORPUSCULAR HEMOGLOBIN 30.4 pg (27.5-34.5); MEAN CORPUSCULAR HGB CONC 32.9 g/dL (33.2-36.2); MEAN CORPUSCULAR VOLUME 92.2 fL (81-97); MEAN PLATELET VOLUME 8.1 fL (7.4-10.4); MONOCYTES # (AUTO) 0.37 x10^3/uL (0.2-0.8); MONOCYTES % (AUTO) 3 % (2-9); NEUTROPHILS # (AUTO) 11.63 x10^3/uL (1.8-6.8); NEUTROPHILS % (AUTO) 93 % (42-75); PLATELET COUNT 151 x10^3/uL (130-400); RED BLOOD COUNT 3.96 x10^6/uL (4.38-5.82); RED CELL DISTRIBUTION WIDTH 15.3 % (9.4-14.8)
[2019-08-31 07:05] LABS: ALBUMIN 3.3 g/dL (3.4-5.0); ANION GAP 7 mmol/L (5-15); CALCIUM 8.9 mg/dL (8.5-10.1); CHLORIDE 103 mmol/L (98-107)
[2019-08-31 07:08] LABS: CREATININE 1.22 mg/dL (0.7-1.3)
[2019-08-31 07:26] VITALS: BP 152/69
[2019-08-31] MEDS: LOSARTAN 50MG TABLET PO SCH (08:26)
[2019-08-31] MEDS: FUROSEMIDE 40 MG TABLET PO SCH (08:26)
[2019-08-31] MEDS: ASPIRIN 81 MG TABLET EC PO SCH (08:27)
[2019-08-31] MEDS: POTASSIUM CHLORIDE 10 MEQ TABLET.ER PO SCH (08:27)
[2019-08-31] MEDS: ISOSORBIDE DINITRATE 10 MG TABLET PO SCH (08:27)
[2019-08-31] MEDS: AZITHROMYCIN 500 MG TABLET PO SCH (08:27)
[2019-08-31] MEDS: APIXABAN 5 MG TABLET PO SCH (08:27)
[2019-08-31 13:48] VITALS: BP 151/67
== END 2019-08-31 14:40 | disposition home health service (06) | DRG 189 ==
LOC: ED 10:08 → 3N 11:52
PROVIDERS: ADMIT Internal Medicine; ATTEND Family Medicine
PROC: 5A09357 Assistance with Respiratory Ventilation, Less than 24 Consecutive Hours, Continuous Positive Airway Pressure (ICD-10-PCS; principal; 2019-08-28)
PROC: 5A09357 Assistance with Respiratory Ventilation, Less than 24 Consecutive Hours, Continuous Positive Airway Pressure (ICD-10-PCS; 2019-08-29)
DX: J96.21 Acute and chronic respiratory failure with hypoxia (principal); E87.3 Alkalosis; I50.32 Chronic diastolic (congestive) heart failure; D72.829 Elevated white blood cell count, unspecified; E03.9 Hypothyroidism, unspecified; E66.01 Morbid (severe) obesity due to excess calories; Z68.39 Body mass index [BMI] 39.0-39.9, adult; E78.5 Hyperlipidemia, unspecified; I11.0 Hypertensive heart disease with heart failure; J43.9 Emphysema, unspecified; Z80.51 Family history of malignant neoplasm of kidney; Z82.5 Family history of asthma and other chronic lower respiratory diseases; Z87.891 Personal history of nicotine dependence; Z99.81 Dependence on supplemental oxygen
CPT/HCPCS: 36415; 36600; 71045; 80048; 80053; 80069; 82040; 82803; 83036; 83735; 83880; 84145; 84443; 84484; 85025; 87400; 93005; 94640; 94660; 99285; G0378; J2930; J7512